=== PATIENT | male | born 1985 | race Caucasian/White ===

== ENCOUNTER 2021-02-24 09:46 | Emergency (ER) | payer MEDICAID ==
[2021-02-24] MEDS ORDERED: Ketamine 50 MG/ML (10ML VIAL) ONE (10:54)
[2021-02-24 11:05] LABS: #Eosinphils 0.1 thou/uL (0.0-0.7); #Lymphocytes 0.4 thou/uL (1.20-3.40); #Monocytes 0.4 thou/uL (0.11-0.59); #Neutrophils 2.3 thou/uL (1.40-6.50); %Basophils 0.5 % (0.0-1.0); %Eosinophils 3.4 % (0.0-10.0); %Lymphocytes 12.8 % (21.0-51.0); %Monocytes 11.9 % (0.0-10.0); %Neutrophils 71.4 % (42.0-75.0); Hemoglobin 13.2 g/dL (14.0-18.0); Mean Corpuscular HGB CONC 33.4 g/dL (32.0-36.0); Mean Corpuscular Hemoglobin 34.3 pg (27.0-31.0); Mean Platelet Volume 8.7 fL (7.4-10.4); Platelet Count 122 thou/uL (130-400); RBC Distribution Width 13.9 % (11.5-14.5); Red Blood Cell (RBC) Count 3.85 mill/uL (4.70-6.10); White Blood Cell (WBC) Count 3.3 thou/uL (4.8-10.8)
[2021-02-24 11:25] LABS: ALT (SGPT) 16 U/L (8-55); AST (SGOT) 21 U/L (5-34); Acetaminophen Less than 6.0 mcg/mL (10.0-30.0); Albumin 4.8 g/dL (3.5-5.0); Alcohol Less than 10 mg/dL (Less than 10); Alkaline Phosphatase 109 U/L (40-110); Anion Gap 14 mmol/L (10-20); BUN (Urea Nitrogen) 12 mg/dL (8.9-20.6); Bilirubin, Total 0.6 mg/dL (0.2-1.2); CK (CPK) 111 U/L (30-200); Calc. Creatinine Clearance 0 mL/min (70-130); Calcium 9.9 mg/dL (7.8-10.44); Carbon Dioxide 27 mmol/L (22-29); Chloride 103 mmol/L (98-107); Glucose 93 mg/dL (70-105); Potassium 4.1 mmol/L (3.5-5.1); Protein, Total 7.8 g/dL (6.0-8.3); Salicylate Less than 8.0 mg/dL (15.0-30.0); Sodium 140 mmol/L (136-145)
[2021-02-24 12:15] LABS: Troponin I Less than 0.010 ng/mL (< 0.028)
== END 2021-02-24 11:48 ==
LOC: EDBD 09:46 → ERS 09:46
DX: R55 Syncope and collapse (principal); F22 Delusional disorders
CPT/HCPCS: 80053; 80307; 82550; 84443; 84484; 85025; 93005

== ENCOUNTER 2021-09-14 07:42 | Emergency (ER) | payer OTHER ==
[2021-09-14 08:41] LABS: #Lymphocytes 0.4 thou/uL (1.20-3.40); #Monocytes 0.5 thou/uL (0.11-0.59); #Neutrophils 5.9 thou/uL (1.40-6.50); %Basophils 0.2 % (0.0-1.0); %Eosinophils 0.2 % (0.0-10.0); %Lymphocytes 5.6 % (21.0-51.0); %Monocytes 6.7 % (0.0-10.0); %Neutrophils 87.4 % (42.0-75.0); Hemoglobin 13.8 g/dL (14.0-18.0); Mean Corpuscular HGB CONC 35.2 g/dL (32.0-36.0); Mean Corpuscular Hemoglobin 32.9 pg (27.0-31.0); Mean Corpuscular Volume 93.5 fL (78.0-98.0); Mean Platelet Volume 8.2 fL (7.4-10.4); Platelet Count 113 thou/uL (130-400); RBC Distribution Width 11.9 % (11.5-14.5); Red Blood Cell (RBC) Count 4.19 mill/uL (4.70-6.10); White Blood Cell (WBC) Count 6.8 thou/uL (4.8-10.8)
[2021-09-14] MEDS ORDERED: Ondansetron PF 4 MG/2 ML Vial ONE ×2 (08:43→10:12)
[2021-09-14] MEDS ORDERED: Morphine 4 MG/ML VIAL ONE (08:43)
[2021-09-14 08:54] LABS: ALT (SGPT) 21 U/L (8-55); AST (SGOT) 24 U/L (5-34); Albumin 4.3 g/dL (3.5-5.0); Alkaline Phosphatase 76 U/L (40-110); Anion Gap 14 mmol/L (10-20); BUN (Urea Nitrogen) 15 mg/dL (8.9-20.6); Bilirubin, Total 1.1 mg/dL (0.2-1.2); Calc. Creatinine Clearance 0 mL/min (70-130); Calcium 9.6 mg/dL (7.8-10.44); Carbon Dioxide 27 mmol/L (22-29); Chloride 101 mmol/L (98-107); Globulin 2.9 g/dL (2.4-3.5); Glucose 90 mg/dL (70-105); Lipase 29 U/L (8-78); Potassium 4.7 mmol/L (3.5-5.1); Protein, Total 7.2 g/dL (6.0-8.3); Sodium 137 mmol/L (136-145)
[2021-09-14 10:15] LABS: SARS-CoV-2 NAA Rapid Test DETECTED (NotDetected)
== END 2021-09-14 10:30 ==
LOC: EEVIPCON 07:42 → ERS 07:42
DX: U07.1 COVID-19 (principal); M25.551 Pain in right hip; Z87.891 Personal history of nicotine dependence
CPT/HCPCS: 36415; 71045; 80053; 83605; 83690; 84484; 85025; 87040; 93005; 94760; 96374; 96375; 96376; J2270; J2405; U0002

== ENCOUNTER 2021-12-19 13:52 | Outpatient (CLI) | payer OTHER ==
[~2021-12-19 13:52] MED LIST: Iopamidol-370 76% 500 ML 1 ML ONE
== END 2021-12-19 13:53 | disposition home or self-care (01) ==
LOC: BICCT 13:52
PROVIDERS: ATTEND Internal Medicine Hematology & Oncology
DX: Z08 Encounter for follow-up examination after completed treatment for malignant neoplasm (principal); Z85.72 Personal history of non-Hodgkin lymphomas; Z87.898 Personal history of other specified conditions; R91.1 Solitary pulmonary nodule; R59.1 Generalized enlarged lymph nodes
CPT/HCPCS: 70491; 71260; 74177; Q9967

== ENCOUNTER 2023-09-09 14:50 | Emergency (ER) | payer OTHER ==
[2023-09-09 18:44] LABS: SARS-CoV-2 NAA Rapid Test Not Detected (NotDetected)
== END 2023-09-09 18:05 | disposition home or self-care (01) ==
LOC: ERS 14:50
DX: J01.90 Acute sinusitis, unspecified (principal); B96.89 Other specified bacterial agents as the cause of diseases classified elsewhere; Z87.891 Personal history of nicotine dependence
CPT/HCPCS: 71046

== ENCOUNTER 2023-10-09 07:29 | Inpatient (IN) | payer OTHER ==
[2023-10-09 08:41] LABS: Hemoglobin 13.2 g/dL (14.0-18.0); Manual Diff?? YES; Mean Corpuscular HGB CONC 33.8 g/dL (32.0-36.0); Mean Corpuscular Hemoglobin 30.5 pg (27.0-31.0); Mean Corpuscular Volume 90.1 fl (78.0-98.0); Mean Platelet Volume 9.7 fL (7.4-10.4); RBC Distribution Width 13.9 % (11.5-14.5); Red Blood Cell (RBC) Count 4.33 mill/uL (4.70-6.10); White Blood Cell (WBC) Count 12.6 10x3/uL (4.8-10.8)
[2023-10-09 08:51] LABS: Delete Auto Diff?? YES; Platelet Count 89 10x3/uL (130-400)
[2023-10-09 09:05] LABS: Troponin I Less than 0.010 ng/mL (< 0.028)
[2023-10-09 09:14] LABS: Band 3 % (5-11); CellaVision Operator ID LAB.KW3; Eosinophils 5 % (0-10); Lymphocytes 12 % (21-51); Monocytes 14 % (0-10); Neutrophil 65 % (42-75); Platelet Adequacy Comment Significant decrease; RBC Morphology Within Normal Limits; Total Cell Count 98
[2023-10-09 10:02] LABS: ALT (SGPT) 25 U/L (8-55); AST (SGOT) 58 U/L (5-34); Albumin 4.3 g/dL (3.5-5.0); Alkaline Phosphatase 82 U/L (40-110); Anion Gap 17 mmol/L (10-20); BUN (Urea Nitrogen) 13 mg/dL (8.9-20.6); Bilirubin, Total 0.6 mg/dL (0.2-1.2); Calc. Creatinine Clearance 0 mL/min (70-130); Calcium 9.6 mg/dL (7.6-10.4); Carbon Dioxide 26 mmol/L (22-29); Chloride 101 mmol/L (98-107); Estimated GFR 92; Globulin 2.3 g/dL (2.4-3.5); Glucose 67 mg/dL (70-105); Lipase 28 U/L (8-78); Potassium 4.5 mmol/L (3.5-5.1); Protein, Total 6.6 g/dL (6.0-8.3); Sodium 139 mmol/L (136-145)
[2023-10-09] MEDS ORDERED: Iopamidol-370 76% 500 ML MDV (1 ML CHARGE) ONE (10:20)
[2023-10-09] MEDS ORDERED: Nicotine 14 MG PATCH ONE (11:27)
[2023-10-09] MEDS ORDERED: Enoxaparin 100 MG (1 mL) SYRINGE ONE (11:27)
[2023-10-09] MEDS ORDERED: Enoxaparin 80 MG (0.8 mL) SYRINGE ONE (11:34)
[2023-10-09] MEDS ORDERED: Acetaminophen 650 MG Suppository PR PRN (12:33)
[2023-10-09] MEDS ORDERED: Sodium Chloride 0.9% 1,000 ML IV SCH (17:15)
[2023-10-09] MEDS: HYDROcodone/Acetaminophen 5/325 mg Tablet PO PRN (18:35)
[2023-10-09] MEDS: Allopurinol 300 MG TAB PO SCH (20:00)
[2023-10-09] MEDS: Acetaminophen 325 MG TAB PO PRN (20:00)
[2023-10-09] MEDS: Sodium Chloride 0.9% 1,000 ML IV SCH (20:02)
[2023-10-09] MEDS: Enoxaparin 80 MG (0.8 mL) SYRINGE SC SCH (20:06)
[2023-10-10 08:00] LABS: Hematocrit 38.8 % (42.0-52.0); Hemoglobin 13.2 g/dL (14.0-18.0); Manual Diff?? YES; Mean Corpuscular Hemoglobin 30.9 pg (27.0-31.0); Mean Corpuscular Volume 90.9 fl (78.0-98.0); Mean Platelet Volume 10.5 fL (7.4-10.4); RBC Distribution Width 13.8 % (11.5-14.5); Red Blood Cell (RBC) Count 4.27 mill/uL (4.70-6.10); White Blood Cell (WBC) Count 13.2 10x3/uL (4.8-10.8)
[2023-10-10 08:06] LABS: Platelet Count 74 10x3/uL (130-400)
[2023-10-10 08:07] LABS: Delete Auto Diff?? YES
[2023-10-10 08:20] LABS: ALT (SGPT) 136 U/L (8-55); AST (SGOT) 181 U/L (5-34); Alkaline Phosphatase 127 U/L (40-110); Anion Gap 21 mmol/L (10-20); BUN (Urea Nitrogen) 14 mg/dL (8.9-20.6); Bilirubin, Total 0.7 mg/dL (0.2-1.2); Calc. Creatinine Clearance 116 mL/min (70-130); Calcium 9.2 mg/dL (7.8-10.44); Carbon Dioxide 19 mmol/L (22-29); Chloride 102 mmol/L (98-107); Estimated GFR 106; Globulin 2.1 g/dL (2.4-3.5); Glucose 62 mg/dL (70-105); Potassium 3.9 mmol/L (3.5-5.1); Protein, Total 6.1 g/dL (6.0-8.3); Sodium 138 mmol/L (136-145); Uric Acid 6.7 mg/dL (3.5-7.2)
[2023-10-10 08:49] LABS: Band 7 % (5-11); CellaVision Operator ID LAB.KW3; Eosinophils 4 % (0-10); Lymphocytes 14 % (21-51); Monocytes 6 % (0-10); Neutrophil 67 % (42-75); Platelet Adequacy Comment Significant decrease; RBC Morphology Within Normal Limits; Reactive Lymphocytes 2 % (0-10); Total Cell Count 99
[2023-10-10] MEDS ORDERED: Iopamidol 370 76% 100 ML VIAL ONE (11:04)
[2023-10-10] MEDS: FLU VACC QS2023-24(6MOS UP)/PF 60 MCG/0.5 ML SYRINGE IM ONE (16:23)
[2023-10-11 05:27] LABS: Hematocrit 37.8 % (42.0-52.0); Hemoglobin 12.9 g/dL (14.0-18.0); Manual Diff?? YES; Mean Corpuscular HGB CONC 34.1 g/dL (32.0-36.0); Mean Corpuscular Hemoglobin 30.8 pg (27.0-31.0); Mean Corpuscular Volume 90.2 fl (78.0-98.0); Mean Platelet Volume 10.3 fL (7.4-10.4); RBC Distribution Width 14.1 % (11.5-14.5); Red Blood Cell (RBC) Count 4.19 mill/uL (4.70-6.10); White Blood Cell (WBC) Count 15.6 10x3/uL (4.8-10.8)
[2023-10-11 05:35] LABS: Delete Auto Diff?? YES; Platelet Count 71 10x3/uL (130-400)
[2023-10-11 05:56] LABS: ALT (SGPT) 378 U/L (8-55); AST (SGOT) 540 U/L (5-34); Albumin 3.8 g/dL (3.5-5.0); Alkaline Phosphatase 226 U/L (40-110); Anion Gap 21 mmol/L (10-20); BUN (Urea Nitrogen) 10 mg/dL (8.9-20.6); Calc. Creatinine Clearance 110 mL/min (70-130); Calcium 9.2 mg/dL (7.8-10.44); Carbon Dioxide 16 mmol/L (22-29); Chloride 103 mmol/L (98-107); Estimated GFR 99; Globulin 2.7 g/dL (2.4-3.5); Glucose 70 mg/dL (70-105); Protein, Total 6.5 g/dL (6.0-8.3); Sodium 136 mmol/L (136-145); Uric Acid Less than 2.0 mg/dL (3.5-7.2)
[2023-10-11 06:10] LABS: Band 6 % (5-11); CellaVision Operator ID lab.abc; Eosinophils 4 % (0-10); Lymphocytes 17 % (21-51); Metamyelocyte 6 % (0-0); Monocytes 7 % (0-10); Myelocyte 2 % (0-0); Neutrophil 57 % (42-75); Platelet Adequacy Comment Platelets Decreased; RBC Morphology Within Normal Limits; Total Cell Count 100
[2023-10-11] MEDS: traMADol HCl 50 MG TAB PO PRN (08:08)
[2023-10-11] MEDS ORDERED: Lidocaine 1% PF 5 ML VIAL ONE (08:43)
[2023-10-11] MEDS ORDERED: Sodium Bicarbonate 2.5 MEQ/5 ML SDV ONE (08:43)
[2023-10-11 08:48] LABS: HBCM Index 0.07 S/CO (0-0.79); HBSAg Index 0.27 S/CO (0-0.99); HIV (1/2) Antibody/Antigen Non-Reactive (NonReactive); HIV 1/2 INDEX 0.18 S/CO (<1.00); Hep A IgM AB Non-Reactive S/CO (NonReactive); Hep A IgM S/CO 0.13 S/CO (0-0.79); Hep B Surf Ag Non-Reactive S/CO (NonReactive); Hep C IgG Ab Non-Reactive S/CO (NonReactive); Hep C Index 0.05 S/CO (0-0.79); Hepatitis B Core IgM Abs Non-Reactive S/CO (NonReactive)
[2023-10-11] MEDS: Lidocaine 4% Patch TD SCH (10:35)
[2023-10-11] MEDS: Methocarbamol 500 MG TAB PO PRN (10:35)
[2023-10-11 11:57] LABS: Bacteria/HPF None Seen HPF (None Seen); Bilirubin Negative (Negative); Blood, Urine 1+ (Negative); Clarity Clear (Clear); Glucose, Urine (Dipstick) Normal (Negative); Ketone, Urine 40 mg/dL (Negative); Leukocyte Negative Leu/uL (Negative); Nitrite Negative (Negative); Protein, Urine (Dipstick) Negative (Neg-Trace); RBC/HPF 0-3 HPF (0-3); Specific Gravity, Urine 1.017 (1.002-1.036); Squamous Epithelial None Seen HPF (0-3); Urobilinogen Normal mg/dL (Less than 2); WBC/HPF 0-3 HPF (0-3); pH, Urine 5.5 (5.0-9.0)
[2023-10-11 12:24] LABS: Amphetamine Not Detected (NotDetected); Barbiturates Screen Not Detected (NotDetected); Benzodiazepine Screen Not Detected (NotDetected); Cocaine Metabolite Screen Not Detected (NotDetected); Methadone Not Detected (NotDetected); Methamphetamine Not Detected (NotDetected); Opiate Screen Not Detected (NotDetected); Oxycodone Screen Not Detected (NotDetected); Phencyclidine (PCP) Not Detected (NotDetected); THC/Cannabinoid Screen Detected (NotDetected); Tricyclic Screen Not Detected (NotDetected)
[2023-10-11] MEDS: Ondansetron ODT 4 MG TAB PO PRN (12:35)
[2023-10-11 18:33] LABS: Platelet Count 49 10x3/uL (130-400)
[2023-10-11 18:42] LABS: Fibrinogen 385 mg/dL (253-463)
[2023-10-11 18:43] LABS: INR-International Normal Ratio 1.2; Prothrombin Time 14.7 sec (12.0-14.7)
[2023-10-11 18:44] LABS: D-Dimer Test 2.01 mcg/mL (0.27-0.43)
[2023-10-11] MEDS: Transdermal Patch Removal TOP SCH (20:34)
[2023-10-12] MEDS: Ondansetron PF 4 MG/2 ML Vial IVP PRN (02:07)
[2023-10-12] MEDS: Morphine 2 MG/ML VIAL SLOW IVP SCH (04:37)
[2023-10-12 05:38] LABS: Hematocrit 40.1 % (42.0-52.0); Hemoglobin 13.5 g/dL (14.0-18.0); Manual Diff?? YES; Mean Corpuscular HGB CONC 33.7 g/dL (32.0-36.0); Mean Corpuscular Hemoglobin 30.8 pg (27.0-31.0); Mean Corpuscular Volume 91.3 fl (78.0-98.0); Mean Platelet Volume 10.7 fL (7.4-10.4); RBC Distribution Width 14.2 % (11.5-14.5); Red Blood Cell (RBC) Count 4.39 mill/uL (4.70-6.10); White Blood Cell (WBC) Count 17.6 10x3/uL (4.8-10.8)
[2023-10-12 06:00] LABS: Delete Auto Diff?? YES; Platelet Count 47 10x3/uL (130-400)
[2023-10-12 06:02] LABS: ALT (SGPT) 301 U/L (8-55); AST (SGOT) 210 U/L (5-34); Albumin 4.1 g/dL (3.5-5.0); Alkaline Phosphatase 295 U/L (40-110); Anion Gap 25 mmol/L (10-20); BUN (Urea Nitrogen) 12 mg/dL (8.9-20.6); Calc. Creatinine Clearance 121 mL/min (70-130); Calcium 9.2 mg/dL (7.8-10.44); Carbon Dioxide 16 mmol/L (22-29); Chloride 98 mmol/L (98-107); Estimated GFR 111; Globulin 2.6 g/dL (2.4-3.5); Potassium 4.8 mmol/L (3.5-5.1); Protein, Total 6.7 g/dL (6.0-8.3); Sodium 134 mmol/L (136-145); Uric Acid 5.3 mg/dL (3.5-7.2)
[2023-10-12 06:14] LABS: Critical Call Chemistry NUR..SAP1@0614; Glucose 49 mg/dL (70-105)
[2023-10-12] MEDS ORDERED: Glucagon 1 MG/ML KIT IM PRN (06:17)
[2023-10-12] MEDS: Dextrose 5% in Water 1,000 ML IV PRN (06:22)
[2023-10-12 06:39] LABS: Band 11 % (5-11); CellaVision Operator ID LAB.JMM; Eosinophils 3 % (0-10); Lymphocytes 9 % (21-51); Macrocytosis SLIGHT = 6-15 cells HPF (0-5); Metamyelocyte 6 % (0-0); Monocytes 4 % (0-10); Myelocyte 6 % (0-0); Neutrophil 60 % (42-75); Platelet Adequacy Comment Platelets Decreased; Polychromasia SLIGHT = 2-3 cells HPF (0-2); Smudge Cells 39.8 %; Total Cell Count 98
[2023-10-12] MEDS: Dextrose 5 %-0.45 % NaCl 1,000 ML IV SCH (07:53)
[2023-10-12] MEDS ORDERED: Allopurinol 300 MG TAB PO SCH (09:00)
[2023-10-12] MEDS: Azithromycin 250 MG TAB PO SCH (11:32)
[2023-10-12] MEDS: Enoxaparin 40 MG (0.4 mL) SYRINGE SC SCH (11:33)
[2023-10-12] MEDS: Zolpidem Tartrate 5 MG TAB PO PRN (20:26)
[2023-10-13 04:35] LABS: Hematocrit 40.6 % (42.0-52.0); Hemoglobin 13.9 g/dL (14.0-18.0); Manual Diff?? YES; Mean Corpuscular HGB CONC 34.2 g/dL (32.0-36.0); Mean Corpuscular Hemoglobin 30.3 pg (27.0-31.0); Mean Corpuscular Volume 88.6 fl (78.0-98.0); Mean Platelet Volume 10.1 fL (7.4-10.4); RBC Distribution Width 14.3 % (11.5-14.5); Red Blood Cell (RBC) Count 4.58 mill/uL (4.70-6.10); White Blood Cell (WBC) Count 16.3 10x3/uL (4.8-10.8)
[2023-10-13 04:51] LABS: Delete Auto Diff?? YES; Platelet Count 37 10x3/uL (130-400)
[2023-10-13 05:09] LABS: ALT (SGPT) 302 U/L (8-55); AST (SGOT) 213 U/L (5-34); Albumin 4.2 g/dL (3.5-5.0); Alkaline Phosphatase 409 U/L (40-110); Anion Gap 21 mmol/L (10-20); BUN (Urea Nitrogen) 11 mg/dL (8.9-20.6); Bilirubin, Total 1.6 mg/dL (0.2-1.2); Calc. Creatinine Clearance 133 mL/min (70-130); Calcium 9.6 mg/dL (7.8-10.44); Carbon Dioxide 17 mmol/L (22-29); Chloride 96 mmol/L (98-107); Estimated GFR 115; Globulin 2.6 g/dL (2.4-3.5); Glucose 66 mg/dL (70-105); Potassium 4.4 mmol/L (3.5-5.1); Protein, Total 6.8 g/dL (6.0-8.3); Sodium 130 mmol/L (136-145); Uric Acid 9.3 mg/dL (3.5-7.2)
[2023-10-13 05:31] LABS: Band 12 % (5-11); CellaVision Operator ID lab.abc; Eosinophils 3 % (0-10); Lymphocytes 9 % (21-51); Metamyelocyte 3 % (0-0); Monocytes 7 % (0-10); Myelocyte 6 % (0-0); Neutrophil 59 % (42-75); Nucleated RBC (Manual Ct) 1 % (0); Platelet Adequacy Comment Platelets Decreased; Polychromasia SLIGHT = 2-3 cells HPF (0-2); RBC Morphology Within Normal Limits; Reactive Lymphocytes 1 % (0-10); Smudge Cells 32.4 %; Total Cell Count 102
[2023-10-13] MEDS: Azithromycin 250 MG TAB PO SCH (08:37)
[2023-10-14 05:29] LABS: Hematocrit 35.5 % (42.0-52.0); Hemoglobin 12.2 g/dL (14.0-18.0); Manual Diff?? YES; Mean Corpuscular HGB CONC 34.4 g/dL (32.0-36.0); Mean Corpuscular Hemoglobin 30.9 pg (27.0-31.0); Mean Corpuscular Volume 89.9 fl (78.0-98.0); Mean Platelet Volume 10.1 fL (7.4-10.4); RBC Distribution Width 14.6 % (11.5-14.5); Red Blood Cell (RBC) Count 3.95 mill/uL (4.70-6.10); White Blood Cell (WBC) Count 13.2 10x3/uL (4.8-10.8)
[2023-10-14 05:46] LABS: Delete Auto Diff?? YES; Platelet Count 25 10x3/uL (130-400)
[2023-10-14 06:05] LABS: ALT (SGPT) 353 U/L (8-55); AST (SGOT) 266 U/L (5-34); Albumin 3.7 g/dL (3.5-5.0); Alkaline Phosphatase 510 U/L (40-110); Anion Gap 26 mmol/L (10-20); BUN (Urea Nitrogen) 14 mg/dL (8.9-20.6); Bilirubin, Total 0.9 mg/dL (0.2-1.2); Calc. Creatinine Clearance 145 mL/min (70-130); Calcium 9.7 mg/dL (7.8-10.44); Carbon Dioxide 15 mmol/L (22-29); Chloride 99 mmol/L (98-107); Estimated GFR 118; Globulin 2.8 g/dL (2.4-3.5); Glucose 71 mg/dL (70-105); Potassium 4.4 mmol/L (3.5-5.1); Protein, Total 6.5 g/dL (6.0-8.3); Sodium 136 mmol/L (136-145); Uric Acid 10.1 mg/dL (3.5-7.2)
[2023-10-14 06:23] LABS: Anisocytosis SLIGHT = 6-15 cells HPF (0-5); Band 8 % (5-11); CellaVision Operator ID LAB.JMM; Eosinophils 7 % (0-10); Large Platelets 3.3 % (0-5); Lymphocytes 10 % (21-51); Macrocytosis SLIGHT = 6-15 cells HPF (0-5); Metamyelocyte 4 % (0-0); Monocytes 1 % (0-10); Myelocyte 9 % (0-0); Neutrophil 62 % (42-75); Nucleated RBC (Manual Ct) 1 % (0); Platelet Adequacy Comment Significant decrease; Polychromasia SLIGHT = 2-3 cells HPF (0-2); Smudge Cells 57.6 %; Total Cell Count 92
[2023-10-14] MEDS: HYDROcodone/Acetaminophen 5/325 mg Tablet PO PRN (18:03)
[2023-10-15 04:51] LABS: Hematocrit 33.1 % (42.0-52.0); Hemoglobin 11.2 g/dL (14.0-18.0); Manual Diff?? YES; Mean Corpuscular HGB CONC 33.8 g/dL (32.0-36.0); Mean Corpuscular Hemoglobin 30.2 pg (27.0-31.0); Mean Corpuscular Volume 89.2 fl (78.0-98.0); Mean Platelet Volume 11.2 fL (7.4-10.4); RBC Distribution Width 14.5 % (11.5-14.5); Red Blood Cell (RBC) Count 3.71 mill/uL (4.70-6.10); White Blood Cell (WBC) Count 9.4 10x3/uL (4.8-10.8)
[2023-10-15 04:59] LABS: Platelet Count 17 10x3/uL (130-400)
[2023-10-15 05:00] LABS: Delete Auto Diff?? YES
[2023-10-15 05:09] LABS: ALT (SGPT) 313 U/L (8-55); AST (SGOT) 222 U/L (5-34); Albumin 3.7 g/dL (3.5-5.0); Alkaline Phosphatase 611 U/L (40-110); Anion Gap 27 mmol/L (10-20); BUN (Urea Nitrogen) 16 mg/dL (8.9-20.6); Calc. Creatinine Clearance 151 mL/min (70-130); Carbon Dioxide 14 mmol/L (22-29); Chloride 97 mmol/L (98-107); Estimated GFR 119; Globulin 2.4 g/dL (2.4-3.5); Glucose 61 mg/dL (70-105); Potassium 4.4 mmol/L (3.5-5.1); Protein, Total 6.1 g/dL (6.0-8.3); Sodium 134 mmol/L (136-145); Uric Acid 11.8 mg/dL (3.5-7.2)
[2023-10-15 05:47] LABS: Band 22 % (5-11); CellaVision Operator ID lab.abc; Eosinophils 4 % (0-10); Lymphocytes 11 % (21-51); Metamyelocyte 3 % (0-0); Monocytes 6 % (0-10); Myelocyte 5 % (0-0); Neutrophil 49 % (42-75); Platelet Adequacy Comment Platelets Decreased; Reactive Lymphocytes 1 % (0-10); Smudge Cells 54.9 %; Target Cells SLIGHT = 2-5 cells HPF (0-1); Total Cell Count 102
[2023-10-15] MEDS ORDERED: Lidocaine 1% PF 5 ML VIAL ONE (14:22)
[2023-10-15] MEDS ORDERED: fentaNYL 50 mcg/mL 1 mL Vial ONE (14:22)
[2023-10-15] MEDS ORDERED: Midazolam HCl 2 mg/2 ml Vial ONE (14:22)
[2023-10-15] MEDS: QUEtiapine 25 MG TAB PO SCH (21:03)
[2023-10-16 05:05] LABS: Hematocrit 39.2 % (42.0-52.0); Hemoglobin 13.3 g/dL (14.0-18.0); Manual Diff?? YES; Mean Corpuscular HGB CONC 33.9 g/dL (32.0-36.0); Mean Corpuscular Hemoglobin 30.7 pg (27.0-31.0); Mean Corpuscular Volume 90.5 fl (78.0-98.0); Mean Platelet Volume 10.7 fL (7.4-10.4); RBC Distribution Width 14.4 % (11.5-14.5); Red Blood Cell (RBC) Count 4.33 mill/uL (4.70-6.10); White Blood Cell (WBC) Count 10.1 10x3/uL (4.8-10.8)
[2023-10-16 05:29] LABS: ALT (SGPT) 320 U/L (8-55); AST (SGOT) 205 U/L (5-34); Albumin 4.1 g/dL (3.5-5.0); Alkaline Phosphatase 854 U/L (40-110); Anion Gap 32 mmol/L (10-20); BUN (Urea Nitrogen) 24 mg/dL (8.9-20.6); Bilirubin, Total 1.3 mg/dL (0.2-1.2); Calc. Creatinine Clearance 131 mL/min (70-130); Calcium 10.3 mg/dL (7.8-10.44); Chloride 97 mmol/L (98-107); Estimated GFR 114; Globulin 3.2 g/dL (2.4-3.5); Potassium 5.2 mmol/L (3.5-5.1); Protein, Total 7.3 g/dL (6.0-8.3); Sodium 132 mmol/L (136-145); Uric Acid 14.9 mg/dL (3.5-7.2)
[2023-10-16 05:36] LABS: Carbon Dioxide 8 mmol/L (22-29); Critical Call Chemistry NUR.SAP1@0535; Glucose 52 mg/dL (70-105)
[2023-10-16 05:51] LABS: Delete Auto Diff?? YES; Platelet Count 19 10x3/uL (130-400)
[2023-10-16] MEDS: Sodium Bicarb 50 MEQ/50 ML Abboject 8.4% SYRINGE IVP SCH ×2 (06:21→10:50)
[2023-10-16 07:12] LABS: Anisocytosis MODERATE=16-30 cells HPF (0-5); Band 20 % (5-11); CellaVision Operator ID LAB.JMM; Eosinophils 4 % (0-10); Large Platelets 1.1 % (0-5); Lymphocytes 8 % (21-51); Macrocytosis SLIGHT = 6-15 cells HPF (0-5); Monocytes 3 % (0-10); Myelocyte 6 % (0-0); Neutrophil 58 % (42-75); Nucleated RBC (Manual Ct) 1 % (0); Platelet Adequacy Comment Significant decrease; Polychromasia MODERATE = 3-4 cells HPF (0-2); Smudge Cells 64.8 %; Tear Drops SLIGHT = 2-5 cells HPF (0-1); Total Cell Count 91
[2023-10-16 07:13] LABS: Lactic Acid Greater than 13.4 mmol/L (0.5-2.2)
[2023-10-16] MEDS: Lactated Ringer's 500 ML IV SCH (08:37)
[2023-10-16] MEDS: Cefepime 1 GM in Sodium Chloride 0.9% 100 ML IVPB SCH (08:45)
[2023-10-16] MEDS ORDERED: Vancomycin 1 GM in Premix 1 BAG IVPB SCH (09:00)
[2023-10-16] MEDS: Lactated Ringer's 1,000 ML IV SCH ×2 (10:42→11:32)
[2023-10-16] MEDS: Vancomycin (BATCH) 1.25 GM in Premix 1 BAG IVPB SCH (11:00)
[2023-10-16 12:21] LABS: Anion Gap 32 mmol/L (10-20); BUN (Urea Nitrogen) 24 mg/dL (8.9-20.6); Calc. Creatinine Clearance 138 mL/min (70-130); Calcium 9.6 mg/dL (7.8-10.44); Carbon Dioxide 10 mmol/L (22-29); Chloride 95 mmol/L (98-107); Estimated GFR 116; Glucose 81 mg/dL (70-105); Potassium 5.1 mmol/L (3.5-5.1); Sodium 132 mmol/L (136-145)
[2023-10-16 12:49] LABS: Critical Call Chem-Lactate NUR.KCK @1249
[2023-10-16] MEDS: Cefepime 2 GM in Sodium Chloride 0.9% 100 ML IVPB SCH (20:46)
[2023-10-17 05:36] LABS: Hematocrit 33.4 % (42.0-52.0); Hemoglobin 11.5 g/dL (14.0-18.0); Manual Diff?? YES; Mean Corpuscular HGB CONC 34.4 g/dL (32.0-36.0); Mean Corpuscular Hemoglobin 31.6 pg (27.0-31.0); Mean Corpuscular Volume 91.8 fl (78.0-98.0); Mean Platelet Volume 11.7 fL (7.4-10.4); RBC Distribution Width 14.5 % (11.5-14.5); Red Blood Cell (RBC) Count 3.64 mill/uL (4.70-6.10); White Blood Cell (WBC) Count 7.3 10x3/uL (4.8-10.8)
[2023-10-17 05:45] LABS: Delete Auto Diff?? YES; Platelet Count 15 10x3/uL (130-400)
[2023-10-17 05:46] LABS: ALT (SGPT) 272 U/L (8-55); AST (SGOT) 226 U/L (5-34); Albumin 3.7 g/dL (3.5-5.0); Alkaline Phosphatase 886 U/L (40-110); BUN (Urea Nitrogen) 18 mg/dL (8.9-20.6); Bilirubin, Total 2.3 mg/dL (0.2-1.2); Calc. Creatinine Clearance 145 mL/min (70-130); Calcium 9.3 mg/dL (7.8-10.44); Chloride 101 mmol/L (98-107); Estimated GFR 118; Globulin 3.1 g/dL (2.4-3.5); Glucose 58 mg/dL (70-105); Potassium 4.9 mmol/L (3.5-5.1); Protein, Total 6.8 g/dL (6.0-8.3); Sodium 128 mmol/L (136-145); Uric Acid 12.6 mg/dL (3.5-7.2)
[2023-10-17 05:51] LABS: Carbon Dioxide Less than 8 mmol/L (22-29); Critical Call Chemistry NUR.KS17@0550
[2023-10-17] MEDS ORDERED: Sodium Bicarbonate 150 MEQ in Dextrose 5% in Water 1,000 ML IV SCH (06:15)
[2023-10-17 06:18] LABS: Base Excess -16.1 mEq/L (-2.0 to +3.0); Chloride (VBG) 100 mmol/L (98-106); Hematocrit-VBG 35 % (42.0-52.0); Potassium (VBG) 4.83 mmol/L (3.70-5.30); Sodium 131 mmol/L (133-146); pH (venous) 7.218 (7.32-7.43)
[2023-10-17 06:30] LABS: Band 19 % (5-11); CellaVision Operator ID lab.abc; Eosinophils 1 % (0-10); Large Platelets 1.2 % (0-5); Lymphocytes 12 % (21-51); Metamyelocyte 1 % (0-0); Monocytes 12 % (0-10); Neutrophil 52 % (42-75); Platelet Adequacy Comment Platelets Decreased; RBC Morphology Within Normal Limits; Reactive Lymphocytes 2 % (0-10); Smudge Cells 58.1 %; Total Cell Count 86
[2023-10-17] MEDS: Dextrose 50% Abboject 50 ML SYRINGE SLOW IVP PRN (06:31)
[2023-10-17] MEDS: Sodium Bicarb 50 mEq/50 ML VIAL IVP SCH (06:31)
[2023-10-17] MEDS: Sodium Bicarbonate 150 MEQ in Dextrose 5% in Water 1,000 ML IV SCH (06:56)
[2023-10-17 06:58] LABS: Critical Call Chem-Lactate NUR.DW5@0658; Lactic Acid 12.1 mmol/L (0.5-2.2)
[2023-10-17 10:00] LABS: Base Excess -14.5 mEq/L (-2.0 to +3.0); Calcium, Ionized (venous) 1.15 mmol/L (1.16-1.32); Chloride (VBG) 97 mmol/L (98-106); Hematocrit-VBG 33 % (42.0-52.0); Hemoglobin (Hb) 11.3 g/dL (13.2-17.3); Potassium (VBG) 4.56 mmol/L (3.70-5.30); Sodium 131 mmol/L (133-146); pH (venous) 7.267 (7.32-7.43)
[2023-10-17 10:23] LABS: Vancomycin, Trough 8.1 ug/mL
[2023-10-17 10:25] LABS: ALT (SGPT) 277 U/L (8-55); AST (SGOT) 257 U/L (5-34); Albumin 3.5 g/dL (3.5-5.0); Alkaline Phosphatase 927 U/L (40-110); Anion Gap 30 mmol/L (10-20); BUN (Urea Nitrogen) 16 mg/dL (8.9-20.6); Bilirubin, Total 2.3 mg/dL (0.2-1.2); Calc. Creatinine Clearance 138 mL/min (70-130); Calcium 9.1 mg/dL (7.8-10.44); Chloride 97 mmol/L (98-107); Estimated GFR 116; Globulin 2.8 g/dL (2.4-3.5); Glucose 69 mg/dL (70-105); Potassium 4.7 mmol/L (3.5-5.1); Protein, Total 6.3 g/dL (6.0-8.3); Sodium 131 mmol/L (136-145)
[2023-10-17] MEDS ORDERED: Vancomycin (BATCH) 1.25 GM in Premix 1 BAG IVPB SCH (10:30)
[2023-10-17 10:36] LABS: Carbon Dioxide 9 mmol/L (22-29); Lactic Acid 13.6 mmol/L (0.5-2.2)
[2023-10-17] MEDS ORDERED: Vancomycin (BATCH) 1.5 GM in Premix 1 BAG IVPB SCH (12:00)
[2023-10-17] MEDS: Vancomycin (BATCH) 1.5 GM in Premix 1 BAG IVPB SCH (12:00)
[2023-10-17 15:12] LABS: Actual Bicarbonate (HCO3v) 10.8 mEq/L (22-28)
[2023-10-17 16:15] LABS: Heparin-Induced Ab (HITA) 0.06 OD (0.000-0.400)
[2023-10-18 03:49] LABS: Hematocrit 31.1 % (42.0-52.0); Hemoglobin 10.7 g/dL (14.0-18.0); Manual Diff?? YES; Mean Corpuscular HGB CONC 34.4 g/dL (32.0-36.0); Mean Corpuscular Hemoglobin 31.4 pg (27.0-31.0); Mean Corpuscular Volume 91.2 fl (78.0-98.0); Mean Platelet Volume 11.2 fL (7.4-10.4); RBC Distribution Width 14.3 % (11.5-14.5); Red Blood Cell (RBC) Count 3.41 mill/uL (4.70-6.10); White Blood Cell (WBC) Count 6.7 10x3/uL (4.8-10.8)
[2023-10-18 03:53] LABS: Platelet Count 20 10x3/uL (130-400)
[2023-10-18 03:54] LABS: Delete Auto Diff?? YES
[2023-10-18 04:21] LABS: ALT (SGPT) 319 U/L (8-55); AST (SGOT) 330 U/L (5-34); Albumin 3.5 g/dL (3.5-5.0); Alkaline Phosphatase 1083 U/L (40-110); BUN (Urea Nitrogen) 15 mg/dL (8.9-20.6); Bilirubin, Total 3.2 mg/dL (0.2-1.2); CK (CPK) 49 U/L (30-200); Calc. Creatinine Clearance 148 mL/min (70-130); Calcium 8.9 mg/dL (7.8-10.44); Chloride 94 mmol/L (98-107); Estimated GFR 119; Globulin 2.5 g/dL (2.4-3.5); Glucose 62 mg/dL (70-105); Potassium 4.5 mmol/L (3.5-5.1); Sodium 129 mmol/L (136-145); Uric Acid 12.7 mg/dL (3.5-7.2)
[2023-10-18 04:25] LABS: Carbon Dioxide Less than 8 mmol/L (22-29)
[2023-10-18 04:37] LABS: Band 19 % (5-11); CellaVision Operator ID lab.sh2; Large Platelets 1.1 % (0-5); Lymphocytes 19 % (21-51); Monocytes 5 % (0-10); Neutrophil 57 % (42-75); Nucleated RBC (Manual Ct) 2 % (0); Platelet Adequacy Comment Significant decrease; Polychromasia SLIGHT = 2-3 cells HPF (0-2); Smudge Cells 53.9 %; Stomatocytes SLIGHT = 2-5 cells HPF (0-1); Total Cell Count 89
[2023-10-18] MEDS ORDERED: Sodium Bicarbonate 150 MEQ in Dextrose 5% in Water 1,000 ML IV SCH (04:45)
[2023-10-18] MEDS: fentaNYL 50 mcg/mL 1 mL Vial SLOW IVP SCH (04:49)
[2023-10-18 05:07] LABS: Base Excess (BEa) -14.7 mEq/L (-2.0 to +3.0); Calcium, Ionized (arterial) 1.18 mmol/L (1.12-1.30); Carboxyhemoglobin (COHb) 0.3 gm% (0.0-3.0); Hematocrit-ABG 32 % (42.0-52.0); O2 Tension (PaO2), arterial 98.6 mmHg (80.0-100.0); Potassium - ABG Lab 4.34 mmol/L (3.70-5.30); pH, Arterial 7.264 (7.35-7.45)
[2023-10-18 05:09] LABS: Actual Bicarbonate (HCO3a) 10.6 mEq/L (22-28); Puncture Site RRA
[2023-10-18] MEDS ORDERED: Acetaminophen 325 MG TAB PO SCH (06:00)
[2023-10-18] MEDS ORDERED: Sulfameth/Trimethoprim DS 800-160mg TAB PO SCH (06:00)
[2023-10-18] MEDS ORDERED: VINCRISTINE SULFATE IVPB SCH (06:00)
[2023-10-18] MEDS ORDERED: SODIUM CHLORIDE 0.9% IVPB SCH ×2 (06:00→11:00)
[2023-10-18] MEDS ORDERED: ADMIXTURE FEE IVPB SCH (06:00)
[2023-10-18] MEDS ORDERED: Dexamethasone 20 MG in Sodium Chloride 0.9% 50 ML IVPB SCH (06:00)
[2023-10-18] MEDS ORDERED: DIPHENHYDRAMINE IVPB SCH (06:00)
[2023-10-18] MEDS ORDERED: SODIUM CHLORIDE IVPB SCH (06:00)
[2023-10-18] MEDS: Sodium Bicarbonate 150 MEQ in Dextrose 5% in Water 1,000 ML IV SCH (06:09)
[2023-10-18] MEDS: Sodium Bicarb 50 mEq/50 ML VIAL IVP SCH (07:39)
[2023-10-18] MEDS: Allopurinol 300 MG TAB PO SCH (10:04)
[2023-10-18] MEDS ORDERED: RASBURICASE IVPB SCH (11:00)
[2023-10-18] MEDS: DRY MOUTH SPRAY FS SCH (12:10)
[2023-10-18] MEDS: Dexamethasone Sod Phosphate 20 MG in Sodium Chloride 0.9% 50 ML IVPB SCH (12:25)
[2023-10-18] MEDS: Famotidine/PF 20 MG in Sodium Chloride 0.9% 50 ML IVPB SCH (12:25)
[2023-10-18] MEDS: PALONOSETRON HCL 0.05 MG/ML 5 ML VIAL IVP SCH ×2 (12:51→12:53)
[2023-10-18] MEDS: DOXORUBICIN IVPB SCH ×2 (13:18→16:24)
[2023-10-18] MEDS: ETOPOSIDE IVPB SCH (13:18)
[2023-10-18] MEDS: VINCRISTINE SULFATE IVPB SCH ×2 (13:18→16:24)
[2023-10-18] MEDS: SODIUM CHLORIDE 0.9% IVPB SCH ×3 (13:18→16:24)
[2023-10-18] MEDS ORDERED: Prochlorperazine 10 MG/2 ML VIAL IM PRN (14:30)
[2023-10-18 15:36] LABS: ALT (SGPT) 294 U/L (8-55); AST (SGOT) 328 U/L (5-34); Albumin 3.3 g/dL (3.5-5.0); Alkaline Phosphatase 1022 U/L (40-110); Anion Gap 28 mmol/L (10-20); BUN (Urea Nitrogen) 15 mg/dL (8.9-20.6); Calc. Creatinine Clearance 155 mL/min (70-130); Calcium 8.8 mg/dL (7.8-10.44); Carbon Dioxide 10 mmol/L (22-29); Chloride 95 mmol/L (98-107); Estimated GFR 120; Globulin 2.6 g/dL (2.4-3.5); Glucose 94 mg/dL (70-105); Potassium 4.2 mmol/L (3.5-5.1); Protein, Total 5.9 g/dL (6.0-8.3); Sodium 129 mmol/L (136-145); Uric Acid 5.7 mg/dL (3.5-7.2)
[2023-10-18 15:43] LABS: Lactic Acid 14.1 mmol/L (0.5-2.2)
[2023-10-18] MEDS: Morphine 4 MG/ML VIAL SLOW IVP PRN (18:45)
[2023-10-19 05:28] LABS: Hematocrit 29.1 % (42.0-52.0); Hemoglobin 10.5 g/dL (14.0-18.0); Manual Diff?? YES; Mean Corpuscular HGB CONC 36.1 g/dL (32.0-36.0); Mean Corpuscular Hemoglobin 31.2 pg (27.0-31.0); Mean Corpuscular Volume 86.4 fl (78.0-98.0); RBC Distribution Width 13.4 % (11.5-14.5); Red Blood Cell (RBC) Count 3.37 mill/uL (4.70-6.10); White Blood Cell (WBC) Count 2.7 10x3/uL (4.8-10.8)
[2023-10-19 05:29] LABS: Platelet Count 12 10x3/uL (130-400)
[2023-10-19 05:30] LABS: Delete Auto Diff?? YES
[2023-10-19 05:56] LABS: Anisocytosis SLIGHT = 6-15 cells HPF (0-5); Band 25 % (5-11); CellaVision Operator ID LAB.CLH1; Eosinophils 5 % (0-10); Hypochromia SLIGHT = 6-15 cells HPF (0-5); Large Platelets 0.9 % (0-5); Lymphocytes 7 % (21-51); Metamyelocyte 8 % (0-0); Monocytes 1 % (0-10); Myelocyte 3 % (0-0); Neutrophil 53 % (42-75); Platelet Adequacy Comment Platelets Decreased; Polychromasia SLIGHT = 2-3 cells HPF (0-2); Target Cells MODERATE= 6-15 cells HPF (0-1); Total Cell Count 106
[2023-10-19 06:00] LABS: ALT (SGPT) 240 U/L (8-55); AST (SGOT) 242 U/L (5-34); Albumin 3.2 g/dL (3.5-5.0); Alkaline Phosphatase 937 U/L (40-110); Anion Gap 19 mmol/L (10-20); BUN (Urea Nitrogen) 32 mg/dL (8.9-20.6); Bilirubin, Total 1.9 mg/dL (0.2-1.2); Calc. Creatinine Clearance 149 mL/min (70-130); Carbon Dioxide 23 mmol/L (22-29); Chloride 95 mmol/L (98-107); Estimated GFR 118; Globulin 2.9 g/dL (2.4-3.5); Glucose 344 mg/dL (70-105); Potassium 4.6 mmol/L (3.5-5.1); Protein, Total 6.1 g/dL (6.0-8.3); Sodium 132 mmol/L (136-145); Uric Acid 8.8 mg/dL (3.5-7.2)
[2023-10-19] MEDS: predniSONE 50 MG TAB PO SCH (09:31)
[2023-10-19] MEDS: Allopurinol 300 MG TAB PO SCH (09:31)
[2023-10-19] MEDS: Nicotine 21 MG PATCH TD SCH (09:32)
[2023-10-20 04:31] LABS: Hematocrit 21.3 % (42.0-52.0); Manual Diff?? YES; Mean Corpuscular HGB CONC 34.7 g/dL (32.0-36.0); Mean Corpuscular Hemoglobin 30.1 pg (27.0-31.0); Mean Corpuscular Volume 86.6 fl (78.0-98.0); RBC Distribution Width 13.1 % (11.5-14.5); Red Blood Cell (RBC) Count 2.46 mill/uL (4.70-6.10); White Blood Cell (WBC) Count 1.1 10x3/uL (4.8-10.8)
[2023-10-20 04:35] LABS: Platelet Count 6 10x3/uL (130-400)
[2023-10-20 04:36] LABS: Delete Auto Diff?? YES; Hemoglobin 7.4 g/dL (14.0-18.0)
[2023-10-20 04:38] LABS: Critical Call w/ Read Back 95692376 @0436
[2023-10-20 05:10] LABS: Band 27 % (5-11); CellaVision Operator ID lab.sh2; Lymphocytes 12 % (21-51); Neutrophil 62 % (42-75); Platelet Adequacy Comment Significant decrease; Polychromasia SLIGHT = 2-3 cells HPF (0-2); Smudge Cells 42.3 %; Total Cell Count 26
[2023-10-20 05:22] LABS: ALT (SGPT) 148 U/L (8-55); AST (SGOT) 90 U/L (5-34); Albumin 2.9 g/dL (3.5-5.0); Alkaline Phosphatase 682 U/L (40-110); Anion Gap 14 mmol/L (10-20); BUN (Urea Nitrogen) 26 mg/dL (8.9-20.6); Bilirubin, Total 2.3 mg/dL (0.2-1.2); Calc. Creatinine Clearance 167 mL/min (70-130); Carbon Dioxide 32 mmol/L (22-29); Chloride 94 mmol/L (98-107); Estimated GFR 122; Globulin 1.8 g/dL (2.4-3.5); Glucose 375 mg/dL (70-105); Potassium 3.9 mmol/L (3.5-5.1); Protein, Total 4.7 g/dL (6.0-8.3); Sodium 136 mmol/L (136-145); Uric Acid 4.4 mg/dL (3.5-7.2)
[2023-10-20 05:29] LABS: Hematocrit 20.6 % (42.0-52.0); Hemoglobin 7.3 g/dL (14.0-18.0); Manual Diff?? YES; Mean Corpuscular HGB CONC 35.4 g/dL (32.0-36.0); Mean Corpuscular Hemoglobin 30.8 pg (27.0-31.0); Mean Corpuscular Volume 86.9 fl (78.0-98.0); RBC Distribution Width 13.2 % (11.5-14.5); Red Blood Cell (RBC) Count 2.37 mill/uL (4.70-6.10)
[2023-10-20 05:30] LABS: Platelet Count 5 10x3/uL (130-400)
[2023-10-20 05:33] LABS: Critical Call w/ Read Back 692376 @0532; Delete Auto Diff?? YES
[2023-10-20 06:04] LABS: Band 31 % (5-11); CellaVision Operator ID lab.sh2; Large Platelets 4.8 % (0-5); Lymphocytes 10 % (21-51); Monocytes 2 % (0-10); Neutrophil 57 % (42-75); Platelet Adequacy Comment Significant decrease; RBC Morphology Within Normal Limits; Smudge Cells 28.6 %; Total Cell Count 42
[2023-10-20] MEDS: Insulin Glargine 30 UNITS/0.3 ML VIAL SC SCH (18:19)
[2023-10-20] MEDS: Sodium Chloride 0.9% 1,000 ML IV SCH (20:49)
[2023-10-20] MEDS: HumaLOG 300 UNITS/3 ML VIAL SC PRN (20:52)
[2023-10-21 05:13] LABS: Hematocrit 17.9 % (42.0-52.0); Hemoglobin 6.2 g/dL (14.0-18.0); Manual Diff?? YES; Mean Corpuscular HGB CONC 34.6 g/dL (32.0-36.0); Mean Corpuscular Hemoglobin 30.5 pg (27.0-31.0); Mean Corpuscular Volume 88.2 fl (78.0-98.0); Mean Platelet Volume 11.5 fL (7.4-10.4); RBC Distribution Width 13.2 % (11.5-14.5); Red Blood Cell (RBC) Count 2.03 mill/uL (4.70-6.10); White Blood Cell (WBC) Count 0.6 10x3/uL (4.8-10.8)
[2023-10-21 05:14] LABS: Platelet Count 11 10x3/uL (130-400)
[2023-10-21 05:15] LABS: Critical Call w/ Read Back NUR.MGD@0515; Delete Auto Diff?? YES
[2023-10-21 05:37] LABS: Band 33 % (5-11); CellaVision Operator ID LAB.CLH1; Hypochromia SLIGHT = 6-15 cells HPF (0-5); Lymphocytes 50 % (21-51); Neutrophil 17 % (42-75); Platelet Adequacy Comment Significant decrease; Polychromasia SLIGHT = 2-3 cells HPF (0-2); Total Cell Count 6
[2023-10-21 05:59] LABS: ALT (SGPT) 123 U/L (8-55); AST (SGOT) 73 U/L (5-34); Albumin 2.9 g/dL (3.5-5.0); Alkaline Phosphatase 491 U/L (40-110); Anion Gap 10 mmol/L (10-20); BUN (Urea Nitrogen) 19 mg/dL (8.9-20.6); Bilirubin, Total 2.1 mg/dL (0.2-1.2); Calc. Creatinine Clearance 205 mL/min (70-130); Calcium 8.4 mg/dL (7.8-10.44); Carbon Dioxide 31 mmol/L (22-29); Chloride 101 mmol/L (98-107); Estimated GFR 130; Globulin 1.5 g/dL (2.4-3.5); Glucose 179 mg/dL (70-105); Potassium 4.1 mmol/L (3.5-5.1); Protein, Total 4.4 g/dL (6.0-8.3); Sodium 138 mmol/L (136-145); Uric Acid 2.8 mg/dL (3.5-7.2)
[2023-10-21] MEDS: Insulin Glargine 30 UNITS/0.3 ML VIAL SC SCH (21:06)
[2023-10-22 05:59] LABS: Hematocrit 21.1 % (42.0-52.0); Hemoglobin 7.2 g/dL (14.0-18.0); Manual Diff?? YES; Mean Corpuscular HGB CONC 34.1 g/dL (32.0-36.0); Mean Corpuscular Hemoglobin 29.6 pg (27.0-31.0); Mean Corpuscular Volume 86.8 fl (78.0-98.0); Mean Platelet Volume 11.2 fL (7.4-10.4); RBC Distribution Width 14.3 % (11.5-14.5); Red Blood Cell (RBC) Count 2.43 mill/uL (4.70-6.10); White Blood Cell (WBC) Count 0.6 10x3/uL (4.8-10.8)
[2023-10-22 06:01] LABS: Platelet Count 13 10x3/uL (130-400)
[2023-10-22 06:02] LABS: Delete Auto Diff?? YES
[2023-10-22 06:04] LABS: Critical Call w/ Read Back NUR.BCB @0602
[2023-10-22 06:09] LABS: Hemoglobin A1c 5.8 % (4.0-6.0)
[2023-10-22 06:17] LABS: ALT (SGPT) 138 U/L (8-55); AST (SGOT) 72 U/L (5-34); Alkaline Phosphatase 497 U/L (40-110); Anion Gap 11 mmol/L (10-20); BUN (Urea Nitrogen) 16 mg/dL (8.9-20.6); Bilirubin, Total 1.8 mg/dL (0.2-1.2); Calc. Creatinine Clearance 157 mL/min (70-130); Calcium 8.8 mg/dL (7.8-10.44); Carbon Dioxide 28 mmol/L (22-29); Chloride 101 mmol/L (98-107); Estimated GFR 121; Globulin 1.4 g/dL (2.4-3.5); Glucose 338 mg/dL (70-105); Potassium 3.9 mmol/L (3.5-5.1); Protein, Total 4.4 g/dL (6.0-8.3); Sodium 136 mmol/L (136-145); Uric Acid Less than 2.0 mg/dL (3.5-7.2)
[2023-10-22 06:39] LABS: Band 11 % (5-11); CellaVision Operator ID lab.sh2; Large Platelets 10.5 % (0-5); Lymphocytes 37 % (21-51); Macrocytosis SLIGHT = 6-15 cells HPF (0-5); Monocytes 21 % (0-10); Neutrophil 32 % (42-75); Platelet Adequacy Comment Significant decrease; Polychromasia SLIGHT = 2-3 cells HPF (0-2); Smudge Cells 26.3 %; Total Cell Count 19
[2023-10-22] MEDS: HumaLOG 300 UNITS/3 ML VIAL SC PRN (13:39)
[2023-10-22] MEDS: SODIUM CHLORIDE 0.9% IVPB SCH (14:23)
[2023-10-22] MEDS: CYCLOPHOSPHAMIDE IVPB SCH (14:23)
[2023-10-23] MEDS ORDERED: PEGFILGRASTIM-JMDB 6 MG/0.6 ML SYRINGE SQ SCH (06:00)
[2023-10-23 06:15] LABS: Hematocrit 22.5 % (42.0-52.0); Hemoglobin 7.7 g/dL (14.0-18.0); Manual Diff?? YES; Mean Corpuscular HGB CONC 34.2 g/dL (32.0-36.0); Mean Corpuscular Hemoglobin 29.7 pg (27.0-31.0); Mean Corpuscular Volume 86.9 fl (78.0-98.0); Mean Platelet Volume 11.2 fL (7.4-10.4); RBC Distribution Width 14.1 % (11.5-14.5); Red Blood Cell (RBC) Count 2.59 mill/uL (4.70-6.10); White Blood Cell (WBC) Count 0.8 10x3/uL (4.8-10.8)
[2023-10-23 06:16] LABS: Platelet Count 19 10x3/uL (130-400)
[2023-10-23 06:17] LABS: Critical Call w/ Read Back NUR.SAP1@0617; Delete Auto Diff?? YES
[2023-10-23 06:43] LABS: ALT (SGPT) 138 U/L (8-55); AST (SGOT) 65 U/L (5-34); Albumin 3.2 g/dL (3.5-5.0); Alkaline Phosphatase 431 U/L (40-110); Anion Gap 11 mmol/L (10-20); BUN (Urea Nitrogen) 14 mg/dL (8.9-20.6); Bilirubin, Total 1.9 mg/dL (0.2-1.2); Calc. Creatinine Clearance 162 mL/min (70-130); Calcium 8.4 mg/dL (7.8-10.44); Carbon Dioxide 27 mmol/L (22-29); Chloride 101 mmol/L (98-107); Estimated GFR 122; Globulin 1.7 g/dL (2.4-3.5); Glucose 141 mg/dL (70-105); Potassium 3.3 mmol/L (3.5-5.1); Protein, Total 4.9 g/dL (6.0-8.3); Sodium 136 mmol/L (136-145); Uric Acid 2.6 mg/dL (3.5-7.2)
[2023-10-23 06:44] LABS: Anisocytosis SLIGHT = 6-15 cells HPF (0-5); Band 29 % (5-11); CellaVision Operator ID LAB.CLH1; Hypochromia SLIGHT = 6-15 cells HPF (0-5); Large Platelets 42.9 % (0-5); Lymphocytes 57 % (21-51); Neutrophil 14 % (42-75); Platelet Adequacy Comment Significant decrease; Polychromasia SLIGHT = 2-3 cells HPF (0-2); Total Cell Count 7
[2023-10-23] MEDS: Potassium Chloride 20 MEQ TAB PO SCH (09:42)
[2023-10-23 15:23] VITALS: BMI 25.5
[2023-10-23] MEDS: PEGFILGRASTIM-JMDB 6 MG/0.6 ML SYRINGE SQ SCH (17:18)
[2023-10-24 05:21] LABS: Manual Diff?? YES; Mean Corpuscular HGB CONC 33.3 g/dL (32.0-36.0); Mean Corpuscular Hemoglobin 29.3 pg (27.0-31.0); Mean Corpuscular Volume 87.9 fl (78.0-98.0); RBC Distribution Width 14.2 % (11.5-14.5); Red Blood Cell (RBC) Count 2.73 mill/uL (4.70-6.10); White Blood Cell (WBC) Count 1.8 10x3/uL (4.8-10.8)
[2023-10-24 05:31] LABS: Platelet Count 23 10x3/uL (130-400)
[2023-10-24 05:32] LABS: Delete Auto Diff?? YES
[2023-10-24 05:37] LABS: ALT (SGPT) 140 U/L (8-55); AST (SGOT) 64 U/L (5-34); Albumin 3.4 g/dL (3.5-5.0); Alkaline Phosphatase 391 U/L (40-110); Anion Gap 11 mmol/L (10-20); BUN (Urea Nitrogen) 18 mg/dL (8.9-20.6); Bilirubin, Total 2.2 mg/dL (0.2-1.2); Calc. Creatinine Clearance 155 mL/min (70-130); Calcium 9.1 mg/dL (7.8-10.44); Carbon Dioxide 30 mmol/L (22-29); Chloride 100 mmol/L (98-107); Estimated GFR 121; Globulin 1.8 g/dL (2.4-3.5); Glucose 89 mg/dL (70-105); Potassium 4.6 mmol/L (3.5-5.1); Protein, Total 5.2 g/dL (6.0-8.3); Sodium 136 mmol/L (136-145); Uric Acid 2.6 mg/dL (3.5-7.2)
[2023-10-24 06:08] LABS: Band 26 % (5-11); CellaVision Operator ID lab.sh2; Eosinophils 1 % (0-10); Large Platelets 3.9 % (0-5); Lymphocytes 21 % (21-51); Macrocytosis SLIGHT = 6-15 cells HPF (0-5); Monocytes 16 % (0-10); Neutrophil 36 % (42-75); Platelet Adequacy Comment Significant decrease; Polychromasia SLIGHT = 2-3 cells HPF (0-2); Smudge Cells 5.9 %; Total Cell Count 102
[2023-10-24] MEDS: Sodium Chloride 0.9% 500 ML IV SCH (23:24)
[2023-10-25 00:12] LABS: Anion Gap 13 mmol/L (10-20); BUN (Urea Nitrogen) 24 mg/dL (8.9-20.6); Calc. Creatinine Clearance 135 mL/min (70-130); Calcium 8.9 mg/dL (7.8-10.44); Carbon Dioxide 27 mmol/L (22-29); Chloride 96 mmol/L (98-107); Estimated GFR 116; Glucose 169 mg/dL (70-105); Magnesium 2.3 mg/dL (1.6-2.6); Potassium 4.4 mmol/L (3.5-5.1); Sodium 132 mmol/L (136-145)
[2023-10-25 05:24] LABS: Hematocrit 22.4 % (42.0-52.0); Hemoglobin 7.5 g/dL (14.0-18.0); Manual Diff?? YES; Mean Corpuscular HGB CONC 33.5 g/dL (32.0-36.0); Mean Corpuscular Hemoglobin 29.9 pg (27.0-31.0); Mean Corpuscular Volume 89.2 fl (78.0-98.0); RBC Distribution Width 14.1 % (11.5-14.5); Red Blood Cell (RBC) Count 2.51 mill/uL (4.70-6.10); White Blood Cell (WBC) Count 7.8 10x3/uL (4.8-10.8)
[2023-10-25 05:50] LABS: ALT (SGPT) 118 U/L (8-55); AST (SGOT) 40 U/L (5-34); Albumin 3.6 g/dL (3.5-5.0); Alkaline Phosphatase 383 U/L (40-110); Anion Gap 15 mmol/L (10-20); BUN (Urea Nitrogen) 22 mg/dL (8.9-20.6); Bilirubin, Total 1.6 mg/dL (0.2-1.2); Calc. Creatinine Clearance 144 mL/min (70-130); Calcium 9.1 mg/dL (7.8-10.44); Carbon Dioxide 29 mmol/L (22-29); Chloride 99 mmol/L (98-107); Estimated GFR 118; Glucose 96 mg/dL (70-105); Potassium 4.7 mmol/L (3.5-5.1); Protein, Total 5.6 g/dL (6.0-8.3); Sodium 138 mmol/L (136-145); Uric Acid 3.1 mg/dL (3.5-7.2)
[2023-10-25 06:05] LABS: Delete Auto Diff?? YES
[2023-10-25 06:06] LABS: Platelet Count 23 10x3/uL (130-400)
[2023-10-25 08:17] LABS: Band 26 % (5-11); CellaVision Operator ID LAB.KW3; Large Platelets 3.8 % (0-5); Lymphocytes 9 % (21-51); Monocytes 4 % (0-10); Neutrophil 60 % (42-75); Platelet Adequacy Comment Significant decrease; Polychromasia SLIGHT = 2-3 cells HPF (0-2); Total Cell Count 53
[2023-10-25] MEDS: Loratadine 10 MG TAB PO SCH (17:16)
[2023-10-26 06:54] LABS: Hemoglobin 6.8 g/dL (14.0-18.0); Manual Diff?? YES; Mean Corpuscular Hemoglobin 30.4 pg (27.0-31.0); Mean Corpuscular Volume 89.3 fl (78.0-98.0); Mean Platelet Volume 12.3 fL (7.4-10.4); RBC Distribution Width 14.2 % (11.5-14.5); Red Blood Cell (RBC) Count 2.24 mill/uL (4.70-6.10); White Blood Cell (WBC) Count 10.3 10x3/uL (4.8-10.8)
[2023-10-26 06:57] LABS: Delete Auto Diff?? YES; Platelet Count 24 10x3/uL (130-400)
[2023-10-26 07:15] LABS: ALT (SGPT) 87 U/L (8-55); AST (SGOT) 26 U/L (5-34); Albumin 3.5 g/dL (3.5-5.0); Alkaline Phosphatase 352 U/L (40-110); Anion Gap 14 mmol/L (10-20); BUN (Urea Nitrogen) 20 mg/dL (8.9-20.6); Bilirubin, Total 1.4 mg/dL (0.2-1.2); Calc. Creatinine Clearance 146 mL/min (70-130); Calcium 8.8 mg/dL (7.8-10.44); Carbon Dioxide 29 mmol/L (22-29); Chloride 100 mmol/L (98-107); Estimated GFR 119; Globulin 1.9 g/dL (2.4-3.5); Glucose 111 mg/dL (70-105); Potassium 4.2 mmol/L (3.5-5.1); Protein, Total 5.4 g/dL (6.0-8.3); Sodium 139 mmol/L (136-145)
[2023-10-26 08:42] LABS: Anisocytosis SLIGHT = 6-15 cells (100X) (0-5/hpf); Band 4 % (5-11); Lymphocytes 7 % (21-51); Neutrophil 89 % (42-75); Ovalocytes SLIGHT = 2-5 cells (100X) (0-1/hpf)
[2023-10-26 08:43] LABS: Platelet Adequacy Comment Significant decrease
[2023-10-26] MEDS: Loratadine 10 MG TAB PO SCH (08:46)
[2023-10-26 18:25] LABS: Hematocrit 22.5 % (42.0-52.0); Hemoglobin 7.7 g/dL (14.0-18.0)
[2023-10-27 06:24] LABS: Hematocrit 19.9 % (42.0-52.0); Hemoglobin 6.6 g/dL (14.0-18.0); Manual Diff?? YES; Mean Corpuscular HGB CONC 33.2 g/dL (32.0-36.0); Mean Corpuscular Volume 90.5 fl (78.0-98.0); Mean Platelet Volume 13.1 fL (7.4-10.4); RBC Distribution Width 14.6 % (11.5-14.5); White Blood Cell (WBC) Count 5.8 10x3/uL (4.8-10.8)
[2023-10-27 07:23] LABS: ALT (SGPT) 71 U/L (8-55); AST (SGOT) 26 U/L (5-34); Albumin 3.3 g/dL (3.5-5.0); Alkaline Phosphatase 305 U/L (40-110); Anion Gap 11 mmol/L (10-20); BUN (Urea Nitrogen) 20 mg/dL (8.9-20.6); Bilirubin, Total 1.1 mg/dL (0.2-1.2); Calc. Creatinine Clearance 160 mL/min (70-130); Calcium 8.2 mg/dL (7.8-10.44); Carbon Dioxide 29 mmol/L (22-29); Chloride 102 mmol/L (98-107); Estimated GFR 122; Globulin 1.8 g/dL (2.4-3.5); Glucose 87 mg/dL (70-105); Protein, Total 5.1 g/dL (6.0-8.3); Sodium 138 mmol/L (136-145)
[2023-10-27 07:38] LABS: Delete Auto Diff?? YES; Platelet Count 23 10x3/uL (130-400)
[2023-10-27 08:21] LABS: Anisocytosis SLIGHT = 6-15 cells HPF (0-5); Band 4 % (5-11); CellaVision Operator ID LAB.CMB; Large Platelets 4.8 % (0-5); Lymphocytes 16 % (21-51); Metamyelocyte 2 % (0-0); Monocytes 7 % (0-10); Neutrophil 70 % (42-75); Nucleated RBC (Manual Ct) 1 % (0); Ovalocytes SLIGHT = 2-5 cells HPF (0-1); Platelet Adequacy Comment Significant decrease; Polychromasia SLIGHT = 2-3 cells HPF (0-2); Reactive Lymphocytes 1 % (0-10); Total Cell Count 105
[2023-10-28 04:31] LABS: Delete Auto Diff?? YES; Hematocrit 24.5 % (42.0-52.0); Hemoglobin 8.3 g/dL (14.0-18.0); Manual Diff?? YES; Mean Corpuscular HGB CONC 33.9 g/dL (32.0-36.0); Mean Corpuscular Hemoglobin 30.9 pg (27.0-31.0); Mean Corpuscular Volume 91.1 fl (78.0-98.0); Mean Platelet Volume 11.7 fL (7.4-10.4); Platelet Count 26 10x3/uL (130-400); Red Blood Cell (RBC) Count 2.69 mill/uL (4.70-6.10); White Blood Cell (WBC) Count 3.6 10x3/uL (4.8-10.8)
[2023-10-28 04:42] LABS: ALT (SGPT) 67 U/L (8-55); AST (SGOT) 30 U/L (5-34); Albumin 3.6 g/dL (3.5-5.0); Alkaline Phosphatase 293 U/L (40-110); Anion Gap 10 mmol/L (10-20); BUN (Urea Nitrogen) 19 mg/dL (8.9-20.6); Bilirubin, Total 1.4 mg/dL (0.2-1.2); Calc. Creatinine Clearance 137 mL/min (70-130); Calcium 8.8 mg/dL (7.8-10.44); Carbon Dioxide 30 mmol/L (22-29); Chloride 101 mmol/L (98-107); Estimated GFR 116; Globulin 1.9 g/dL (2.4-3.5); Glucose 137 mg/dL (70-105); Potassium 3.9 mmol/L (3.5-5.1); Protein, Total 5.5 g/dL (6.0-8.3); Sodium 137 mmol/L (136-145)
[2023-10-28 05:10] LABS: Anisocytosis SLIGHT = 6-15 cells HPF (0-5); Band 3 % (5-11); CellaVision Operator ID lab.abc; Eosinophils 1 % (0-10); Large Platelets 10.2 % (0-5); Lymphocytes 19 % (21-51); Monocytes 5 % (0-10); Neutrophil 73 % (42-75); Nucleated RBC (Manual Ct) 1 % (0); Platelet Adequacy Comment Significant decrease; Polychromasia SLIGHT = 2-3 cells HPF (0-2); Smudge Cells 15.3 %; Total Cell Count 118
[2023-10-28 13:08] VITALS: BP 116/71; TEMP 97.4
== END 2023-10-28 15:45 | disposition home or self-care (01) | DRG 823 ==
LOC: ERS 07:29 → ERHOLD 11:47 → MSONC 16:33 → IMCU/EMU 10-16 13:23 → MSONC 10-21 19:54
PROVIDERS: ADMIT Internal Medicine; ATTEND Internal Medicine
PROC: 07963ZX Drainage of Left Axillary Lymphatic, Percutaneous Approach, Diagnostic (ICD-10-PCS; principal; 2023-10-11)
PROC: 079T3ZX Drainage of Bone Marrow, Percutaneous Approach, Diagnostic (ICD-10-PCS; 2023-10-15)
PROC: 07DR3ZX Extraction of Iliac Bone Marrow, Percutaneous Approach, Diagnostic (ICD-10-PCS; 2023-10-15)
DX: C83.7 Burkitt lymphoma (principal); D61.810 Antineoplastic chemotherapy induced pancytopenia; E88.3 Tumor lysis syndrome; I26.93 Single subsegmental thrombotic pulmonary embolism without acute cor pulmonale; J18.9 Pneumonia, unspecified organism; I26.99 Other pulmonary embolism without acute cor pulmonale; K72.00 Acute and subacute hepatic failure without coma; C95.00 Acute leukemia of unspecified cell type not having achieved remission; C83.34 Diffuse large B-cell lymphoma, lymph nodes of axilla and upper limb; E87.20 Acidosis, unspecified; Z51.5 Encounter for palliative care; D69.6 Thrombocytopenia, unspecified; E11.649 Type 2 diabetes mellitus with hypoglycemia without coma; R74.01 Elevation of levels of liver transaminase levels; R63.4 Abnormal weight loss; D64.9 Anemia, unspecified; T45.1X5A Adverse effect of antineoplastic and immunosuppressive drugs, initial encounter; E11.40 Type 2 diabetes mellitus with diabetic neuropathy, unspecified; E87.6 Hypokalemia; Z87.891 Personal history of nicotine dependence; Z88.0 Allergy status to penicillin; Z98.890 Other specified postprocedural states; Z68.25 Body mass index [BMI] 25.0-25.9, adult; Z91.89 Other specified personal risk factors, not elsewhere classified
CPT/HCPCS: 36415; 36416; 36430; 36600; 38222; 38505; 70491; 71045; 71260; 71275; 72100; 72131; 72148; 74177; 76705; 77002; 80053; 80074; 80202; 80306; 81001; 82533; 82550; 82805; 83036; 83605; 83615; 83690; 83735; 83880; 84443; 84484; 84550; 85025; 85049; 85097; 85300; 85362; 85384; 85610; 85730; 86850; 86900; 86901; 87040; 87389; 88121; 88184; 88185; 88237; 88305; 88307; 88311; 88313; 88341; 88342; 88360; 93005; 93010; 93306; 96372; J0692; J1100; J1650; J1815; J2250; J2270; J2272; J2405; J2469; J2506; J2783; J3010; J3370; J3490; J7030; J7042; J7050; J7070; J7120; J7512; J7999; J9000; J9070; J9181; J9370; P9016; P9035; Q0162; Q9967; S0028

== ENCOUNTER 2023-10-30 23:19 | Emergency (ER) | payer OTHER ==
[~2023-10-30 23:19] MED LIST changes: +Iopamidol 370 76% 100 ML VIAL ONE; -Iopamidol-370 76% 500 ML 1 ML ONE
[2023-10-30 23:54] LABS: Hematocrit 24.6 % (42.0-52.0); Hemoglobin 7.9 g/dL (14.0-18.0); Manual Diff?? YES; Mean Corpuscular HGB CONC 32.1 g/dL (32.0-36.0); Mean Corpuscular Hemoglobin 31.5 pg (27.0-31.0); Mean Platelet Volume 10.6 fL (7.4-10.4); RBC Distribution Width 20.8 % (11.5-14.5); Red Blood Cell (RBC) Count 2.51 mill/uL (4.70-6.10); White Blood Cell (WBC) Count 3.8 10x3/uL (4.8-10.8)
[2023-10-30 23:56] LABS: Delete Auto Diff?? YES; Platelet Count 49 10x3/uL (130-400)
[2023-10-31 00:19] LABS: Anisocytosis SLIGHT = 6-15 cells HPF (0-5); Band 20 % (5-11); CellaVision Operator ID LAB.CLH1; Eosinophils 2 % (0-10); Hypochromia SLIGHT = 6-15 cells HPF (0-5); Lymphocytes 13 % (21-51); Monocytes 7 % (0-10); Neutrophil 56 % (42-75); Nucleated RBC (Manual Ct) 1 % (0); Platelet Adequacy Comment Platelets Decreased; Polychromasia SLIGHT = 2-3 cells HPF (0-2); Total Cell Count 97
[2023-10-31 00:20] LABS: ALT (SGPT) 51 U/L (8-55); AST (SGOT) 24 U/L (5-34); Albumin 3.6 g/dL (3.5-5.0); Alkaline Phosphatase 233 U/L (40-110); Anion Gap 15 mmol/L (10-20); BUN (Urea Nitrogen) 13 mg/dL (8.9-20.6); Bilirubin, Total 0.9 mg/dL (0.2-1.2); Calc. Creatinine Clearance 0 mL/min (70-130); Calcium 8.9 mg/dL (7.8-10.44); Carbon Dioxide 25 mmol/L (22-29); Chloride 105 mmol/L (98-107); Estimated GFR 113; Globulin 1.9 g/dL (2.4-3.5); Glucose 138 mg/dL (70-105); Lipase 65 U/L (8-78); Magnesium 2.4 mg/dL (1.6-2.6); Potassium 3.7 mmol/L (3.5-5.1); Protein, Total 5.5 g/dL (6.0-8.3); Sodium 141 mmol/L (136-145)
[2023-10-31 00:23] LABS: Troponin I Less than 0.010 ng/mL (< 0.028)
[2023-10-31] MEDS ORDERED: fentaNYL 50 mcg/mL 1 mL Vial ONE (00:30)
== END 2023-10-31 02:47 | disposition left against medical advice (07) ==
LOC: ERS 23:19
DX: R07.81 Pleurodynia (principal); D73.5 Infarction of spleen; D69.6 Thrombocytopenia, unspecified; Z87.891 Personal history of nicotine dependence
CPT/HCPCS: 36415; 71045; 71275; 80053; 83605; 83690; 83735; 83880; 84484; 85025; 93005; J3010

== ENCOUNTER 2023-10-31 11:14 | Emergency (ER) | payer OTHER ==
[2023-10-31 12:27] LABS: Hematocrit 23.6 % (42.0-52.0); Hemoglobin 7.6 g/dL (14.0-18.0); Manual Diff?? YES; Mean Corpuscular HGB CONC 32.2 g/dL (32.0-36.0); Mean Corpuscular Hemoglobin 31.9 pg (27.0-31.0); Mean Corpuscular Volume 99.2 fl (78.0-98.0); Mean Platelet Volume 10.9 fL (7.4-10.4); RBC Distribution Width 21.5 % (11.5-14.5); Red Blood Cell (RBC) Count 2.38 mill/uL (4.70-6.10); White Blood Cell (WBC) Count 3.1 10x3/uL (4.8-10.8)
[2023-10-31 12:28] LABS: Delete Auto Diff?? YES; Platelet Count 48 10x3/uL (130-400)
[2023-10-31 12:38] LABS: INR-International Normal Ratio 0.9; Prothrombin Time 12.3 sec (12.0-14.7)
[2023-10-31] MEDS ORDERED: Acetaminophen 500 MG TAB ONE (12:48)
[2023-10-31 12:49] LABS: ALT (SGPT) 47 U/L (8-55); AST (SGOT) 22 U/L (5-34); Albumin 3.5 g/dL (3.5-5.0); Alkaline Phosphatase 218 U/L (40-110); Anion Gap 9 mmol/L (10-20); BUN (Urea Nitrogen) 12 mg/dL (8.9-20.6); Bilirubin, Total 0.8 mg/dL (0.2-1.2); Calc. Creatinine Clearance 0 mL/min (70-130); Calcium 8.8 mg/dL (7.8-10.44); Carbon Dioxide 28 mmol/L (22-29); Chloride 107 mmol/L (98-107); Estimated GFR 112; Globulin 1.8 g/dL (2.4-3.5); Glucose 114 mg/dL (70-105); Lipase 75 U/L (8-78); Magnesium 2.1 mg/dL (1.6-2.6); Potassium 3.7 mmol/L (3.5-5.1); Protein, Total 5.3 g/dL (6.0-8.3); Sodium 140 mmol/L (136-145)
[2023-10-31] MEDS ORDERED: Enoxaparin 80 MG (0.8 mL) SYRINGE ONE (12:49)
[2023-10-31] MEDS ORDERED: Ibuprofen 200 MG TAB ONE (12:49)
[2023-10-31 12:53] LABS: Troponin I Less than 0.010 ng/mL (< 0.028)
[2023-10-31 12:55] LABS: Anisocytosis SLIGHT = 6-15 cells HPF (0-5); Band 31 % (5-11); CellaVision Operator ID LAB.MJL; Eosinophils 1 % (0-10); Lymphocytes 11 % (21-51); Monocytes 1 % (0-10); Neutrophil 54 % (42-75); Ovalocytes SLIGHT = 2-5 cells HPF (0-1); Platelet Adequacy Comment Platelets Decreased; Polychromasia MODERATE = 3-4 cells HPF (0-2); Total Cell Count 100; Toxic Granulation SLIGHT
[2023-10-31 15:29] LABS: Troponin I Less than 0.010 ng/mL (< 0.028)
[2023-10-31 15:41] LABS: Lactic Acid 1.8 mmol/L (0.5-2.2)
== END 2023-10-31 16:50 | disposition home or self-care (01) ==
LOC: ERS 11:14 → MSONC 13:23 → UNDOADMIN 13:23
DX: R07.81 Pleurodynia (principal); D73.5 Infarction of spleen; D69.6 Thrombocytopenia, unspecified; Z87.891 Personal history of nicotine dependence; C83.78 Burkitt lymphoma, lymph nodes of multiple sites
CPT/HCPCS: 36415; 36416; 71045; 71275; 80053; 82248; 83605; 83615; 83690; 83735; 83880; 84100; 84484; 84550; 85025; 85610; 85730; 86850; 86900; 86901; 87040; 93005; 94760; 96360; J1650; J3010; Q9967

== ENCOUNTER 2023-11-13 04:52 | Inpatient (IN) | payer OTHER ==
[2023-11-13] MEDS ORDERED: Acetaminophen 325 MG TAB PO PRN (09:29)
[2023-11-13] MEDS ORDERED: Ondansetron PF 4 MG/2 ML Vial IVP PRN (09:43)
[2023-11-13 09:58] VITALS: BMI 25.7
[2023-11-13] MEDS: Dexamethasone Sod Phosphate 20 MG in Sodium Chloride 0.9% 50 ML IVPB SCH (11:59)
[2023-11-13] MEDS: Famotidine/PF 20 MG in Sodium Chloride 0.9% 50 ML IVPB SCH (12:36)
[2023-11-13 12:57] LABS: #Basophils Less than 0.03 10x3/uL (0.0-0.2); %Basophils 0.4 % (0.0-1.0); %Eosinophils 4.9 % (0.0-10.0); %Lymphocytes 15.2 % (21.0-51.0); %Monocytes 11.7 % (0.0-10.0); %Neutrophils 67.4 % (42.0-75.0); Hematocrit 31.6 % (42.0-52.0); Hemoglobin 10.3 g/dL (14.0-18.0); Mean Corpuscular HGB CONC 32.6 g/dL (32.0-36.0); Mean Corpuscular Hemoglobin 33.2 pg (27.0-31.0); Mean Corpuscular Volume 101.9 fL (78.0-98.0); Mean Platelet Volume 10.3 fL (7.4-10.4); Platelet Count 118 10x3/uL (130-400); RBC Distribution Width 22.1 % (11.5-14.5)
[2023-11-13 13:17] LABS: ALT (SGPT) 21 U/L (8-55); AST (SGOT) 17 U/L (5-34); Albumin 4.1 g/dL (3.5-5.0); Alkaline Phosphatase 98 U/L (40-110); Anion Gap 10 mmol/L (10-20); Anisocytosis SLIGHT = 6-15 cells HPF (0-5); BUN (Urea Nitrogen) 10 mg/dL (8.9-20.6); Bilirubin, Total 0.6 mg/dL (0.2-1.2); Calc. Creatinine Clearance 124 mL/min (70-130); Calcium 9.1 mg/dL (7.8-10.44); Carbon Dioxide 27 mmol/L (22-29); Chloride 107 mmol/L (98-107); Estimated GFR 113; Globulin 1.9 g/dL (2.4-3.5); Glucose 98 mg/dL (70-105); Hypochromia SLIGHT = 6-15 cells HPF (0-5); Macrocytosis SLIGHT = 6-15 cells HPF (0-5); Ovalocytes SLIGHT = 2-5 cells HPF (0-1); Platelet Adequacy Comment Platelets Decreased; Poikilocytosis SLIGHT = 6-15 cells HPF (0-5); Polychromasia SLIGHT = 2-3 cells HPF (0-2); Potassium 4.1 mmol/L (3.5-5.1); Sodium 140 mmol/L (136-145); Tear Drops SLIGHT = 2-5 cells HPF (0-1)
[2023-11-13] MEDS: ETOPOSIDE IVPB SCH (15:56)
[2023-11-13] MEDS: SODIUM CHLORIDE 0.9% IVPB SCH ×2 (15:56→17:10)
[2023-11-13] MEDS: DOXORUBICIN IVPB SCH (17:10)
[2023-11-13] MEDS: VINCRISTINE SULFATE IVPB SCH (17:10)
[2023-11-13] MEDS: FLU VACC QS2023-24(6MOS UP)/PF 60 MCG/0.5 ML SYRINGE IM ONE (17:26)
[2023-11-13] MEDS: Sulfameth/Trimethoprim DS 800-160mg TAB PO SCH (21:25)
[2023-11-13] MEDS: Famotidine 20 MG TAB PO SCH (21:26)
[2023-11-13] MEDS: Apixaban 5 MG TAB PO SCH (21:26)
[2023-11-13] MEDS: traZODone HCl 50 MG TAB PO SCH (23:20)
[2023-11-14 05:36] LABS: #Basophils Less than 0.03 10x3/uL (0.0-0.2); #Eosinphils Less than 0.03 10x3/uL (0.0-0.7); %Lymphocytes 6.5 % (21.0-51.0); %Monocytes 6.9 % (0.0-10.0); %Neutrophils 85.9 % (42.0-75.0); Hematocrit 31.5 % (42.0-52.0); Hemoglobin 10.6 g/dL (14.0-18.0); Mean Corpuscular HGB CONC 33.7 g/dL (32.0-36.0); Mean Corpuscular Hemoglobin 33.9 pg (27.0-31.0); Mean Corpuscular Volume 100.6 fL (78.0-98.0); Mean Platelet Volume 9.8 fL (7.4-10.4); Platelet Count 124 10x3/uL (130-400); Red Blood Cell (RBC) Count 3.13 mill/uL (4.70-6.10)
[2023-11-14 06:00] LABS: ALT (SGPT) 22 U/L (8-55); AST (SGOT) 16 U/L (5-34); Albumin 4.3 g/dL (3.5-5.0); Alkaline Phosphatase 99 U/L (40-110); Anion Gap 13 mmol/L (10-20); BUN (Urea Nitrogen) 12 mg/dL (8.9-20.6); Bilirubin, Total 0.6 mg/dL (0.2-1.2); Calc. Creatinine Clearance 120 mL/min (70-130); Calcium 9.7 mg/dL (7.8-10.44); Carbon Dioxide 23 mmol/L (22-29); Chloride 104 mmol/L (98-107); Estimated GFR 111; Glucose 139 mg/dL (70-105); Potassium 4.3 mmol/L (3.5-5.1); Protein, Total 6.3 g/dL (6.0-8.3); Sodium 136 mmol/L (136-145); Uric Acid 3.5 mg/dL (3.5-7.2)
[2023-11-14 06:36] LABS: Anisocytosis SLIGHT = 6-15 cells HPF (0-5); Macrocytosis SLIGHT = 6-15 cells HPF (0-5); Platelet Adequacy Comment Platelets Decreased; Polychromasia SLIGHT = 2-3 cells HPF (0-2)
[2023-11-14] MEDS: predniSONE 50 MG TAB PO SCH (10:00)
[2023-11-14] MEDS: traZODone HCl 50 MG TAB PO PRN (22:30)
[2023-11-15 05:14] LABS: #Basophils Less than 0.03 10x3/uL (0.0-0.2); #Eosinphils Less than 0.03 10x3/uL (0.0-0.7); %Lymphocytes 10.5 % (21.0-51.0); %Monocytes 10.1 % (0.0-10.0); Hematocrit 31.4 % (42.0-52.0); Hemoglobin 10.7 g/dL (14.0-18.0); Mean Corpuscular HGB CONC 34.1 g/dL (32.0-36.0); Mean Corpuscular Hemoglobin 34.1 pg (27.0-31.0); Mean Platelet Volume 10.4 fL (7.4-10.4); Platelet Count 129 10x3/uL (130-400); Red Blood Cell (RBC) Count 3.14 mill/uL (4.70-6.10)
[2023-11-15 05:34] LABS: ALT (SGPT) 16 U/L (8-55); AST (SGOT) 12 U/L (5-34); Alkaline Phosphatase 87 U/L (40-110); Anion Gap 13 mmol/L (10-20); BUN (Urea Nitrogen) 15 mg/dL (8.9-20.6); Bilirubin, Total 0.5 mg/dL (0.2-1.2); Calc. Creatinine Clearance 135 mL/min (70-130); Calcium 9.1 mg/dL (7.8-10.44); Carbon Dioxide 23 mmol/L (22-29); Chloride 108 mmol/L (98-107); Estimated GFR 115; Globulin 1.8 g/dL (2.4-3.5); Glucose 130 mg/dL (70-105); Potassium 3.6 mmol/L (3.5-5.1); Protein, Total 5.8 g/dL (6.0-8.3); Sodium 140 mmol/L (136-145); Uric Acid 3.4 mg/dL (3.5-7.2)
[2023-11-15 06:30] LABS: Anisocytosis MODERATE=16-30 cells HPF (0-5); Macrocytosis SLIGHT = 6-15 cells HPF (0-5); Ovalocytes SLIGHT = 2-5 cells HPF (0-1); Platelet Adequacy Comment Platelets Decreased; Polychromasia SLIGHT = 2-3 cells HPF (0-2); Tear Drops SLIGHT = 2-5 cells HPF (0-1)
[2023-11-16 06:37] LABS: ALT (SGPT) 18 U/L (8-55); AST (SGOT) 12 U/L (5-34); Albumin 3.9 g/dL (3.5-5.0); Alkaline Phosphatase 83 U/L (40-110); Anion Gap 15 mmol/L (10-20); BUN (Urea Nitrogen) 15 mg/dL (8.9-20.6); Bilirubin, Total 0.6 mg/dL (0.2-1.2); Calc. Creatinine Clearance 142 mL/min (70-130); Calcium 8.9 mg/dL (7.8-10.44); Carbon Dioxide 24 mmol/L (22-29); Chloride 105 mmol/L (98-107); Estimated GFR 116; Globulin 1.9 g/dL (2.4-3.5); Glucose 91 mg/dL (70-105); Potassium 3.8 mmol/L (3.5-5.1); Protein, Total 5.8 g/dL (6.0-8.3); Sodium 140 mmol/L (136-145); Uric Acid 2.9 mg/dL (3.5-7.2)
[2023-11-16 06:39] LABS: #Basophils Less than 0.03 10x3/uL (0.0-0.2); #Eosinphils Less than 0.03 10x3/uL (0.0-0.7); %Eosinophils 0.2 % (0.0-10.0); %Lymphocytes 11.8 % (21.0-51.0); %Monocytes 10.7 % (0.0-10.0); %Neutrophils 77.1 % (42.0-75.0); Hematocrit 31.2 % (42.0-52.0); Hemoglobin 10.5 g/dL (14.0-18.0); Mean Corpuscular HGB CONC 33.7 g/dL (32.0-36.0); Mean Corpuscular Hemoglobin 33.7 pg (27.0-31.0); Mean Platelet Volume 10.1 fL (7.4-10.4); Platelet Count 128 10x3/uL (130-400); Red Blood Cell (RBC) Count 3.12 mill/uL (4.70-6.10)
[2023-11-16 07:45] LABS: Band 2 % (5-11); Lymphocytes 9 % (21-51); Monocytes 5 % (0-10); Neutrophil 84 % (42-75); Platelet Adequacy Comment Platelets Decreased; Polychromasia SLIGHT = 2-3 cells HPF (0-2); Tear Drops SLIGHT = 2-5 cells HPF (0-1)
[2023-11-16] MEDS: Nicotine 21 MG PATCH TD SCH (15:22)
[2023-11-17 06:44] LABS: #Basophils Less than 0.03 10x3/uL (0.0-0.2); #Eosinphils Less than 0.03 10x3/uL (0.0-0.7); %Eosinophils 0.3 % (0.0-10.0); %Lymphocytes 14.2 % (21.0-51.0); %Neutrophils 74.9 % (42.0-75.0); Hematocrit 32.3 % (42.0-52.0); Hemoglobin 11.1 g/dL (14.0-18.0); Mean Corpuscular HGB CONC 34.4 g/dL (32.0-36.0); Mean Corpuscular Hemoglobin 33.3 pg (27.0-31.0); Mean Platelet Volume 9.8 fL (7.4-10.4); Platelet Count 151 10x3/uL (130-400); RBC Distribution Width 20.1 % (11.5-14.5); Red Blood Cell (RBC) Count 3.33 mill/uL (4.70-6.10)
[2023-11-17 09:14] LABS: ALT (SGPT) 21 U/L (8-55); AST (SGOT) 16 U/L (5-34); Albumin 4.1 g/dL (3.5-5.0); Alkaline Phosphatase 85 U/L (40-110); Anion Gap 13 mmol/L (10-20); BUN (Urea Nitrogen) 18 mg/dL (8.9-20.6); Bilirubin, Total 0.7 mg/dL (0.2-1.2); Calc. Creatinine Clearance 145 mL/min (70-130); Calcium 9.3 mg/dL (7.8-10.44); Carbon Dioxide 25 mmol/L (22-29); Chloride 104 mmol/L (98-107); Estimated GFR 117; Globulin 1.8 g/dL (2.4-3.5); Glucose 86 mg/dL (70-105); Potassium 3.5 mmol/L (3.5-5.1); Protein, Total 5.9 g/dL (6.0-8.3); Sodium 138 mmol/L (136-145)
[2023-11-17] MEDS: PALONOSETRON HCL 0.05 MG/ML 5 ML VIAL IVP SCH (14:30)
[2023-11-17] MEDS: SODIUM CHLORIDE 0.9% IVPB SCH (14:36)
[2023-11-17] MEDS: CYCLOPHOSPHAMIDE IVPB SCH (14:36)
[2023-11-17 21:52] VITALS: TEMP 97.5
[2023-11-18 04:16] LABS: #Basophils Less than 0.03 10x3/uL (0.0-0.2); #Eosinphils Less than 0.03 10x3/uL (0.0-0.7); %Eosinophils 0.5 % (0.0-10.0); %Lymphocytes 15.2 % (21.0-51.0); %Monocytes 8.8 % (0.0-10.0); %Neutrophils 75.2 % (42.0-75.0); Hematocrit 28.9 % (42.0-52.0); Mean Corpuscular HGB CONC 34.6 g/dL (32.0-36.0); Mean Corpuscular Hemoglobin 34.2 pg (27.0-31.0); Mean Platelet Volume 9.6 fL (7.4-10.4); Platelet Count 154 10x3/uL (130-400); RBC Distribution Width 19.9 % (11.5-14.5); Red Blood Cell (RBC) Count 2.92 mill/uL (4.70-6.10)
[2023-11-18 04:45] LABS: ALT (SGPT) 19 U/L (8-55); AST (SGOT) 14 U/L (5-34); Albumin 3.9 g/dL (3.5-5.0); Alkaline Phosphatase 80 U/L (40-110); Anion Gap 13 mmol/L (10-20); BUN (Urea Nitrogen) 19 mg/dL (8.9-20.6); Bilirubin, Total 0.6 mg/dL (0.2-1.2); Calc. Creatinine Clearance 140 mL/min (70-130); Calcium 9.2 mg/dL (7.8-10.44); Carbon Dioxide 25 mmol/L (22-29); Chloride 104 mmol/L (98-107); Estimated GFR 115; Globulin 1.7 g/dL (2.4-3.5); Glucose 104 mg/dL (70-105); Potassium 3.4 mmol/L (3.5-5.1); Protein, Total 5.6 g/dL (6.0-8.3); Sodium 139 mmol/L (136-145); Uric Acid 5.5 mg/dL (3.5-7.2)
[2023-11-18 08:33] VITALS: BP 125/64
[2023-11-18] MEDS: Potassium Chloride 20 MEQ TAB PO SCH (13:57)
[2023-11-18] MEDS: PEGFILGRASTIM-JMDB 6 MG/0.6 ML SYRINGE SQ SCH (14:46)
== END 2023-11-18 15:28 | disposition home or self-care (01) | DRG 846 ==
LOC: MSONC 08:59
PROVIDERS: ADMIT Family Medicine; ATTEND Emergency Medicine
DX: Z51.11 Encounter for antineoplastic chemotherapy (principal); I26.93 Single subsegmental thrombotic pulmonary embolism without acute cor pulmonale; J18.9 Pneumonia, unspecified organism; C83.70 Burkitt lymphoma, unspecified site; C95.90 Leukemia, unspecified not having achieved remission; D84.9 Immunodeficiency, unspecified; D61.818 Other pancytopenia; Z88.0 Allergy status to penicillin; R07.81 Pleurodynia; D53.9 Nutritional anemia, unspecified; D69.6 Thrombocytopenia, unspecified; D63.0 Anemia in neoplastic disease; Z91.89 Other specified personal risk factors, not elsewhere classified
CPT/HCPCS: 36415; 80053; 83615; 84550; 85025; 96413; 96415; J1100; J1200; J1642; J2469; J2506; J3490; J7030; J7512; J9000; J9070; J9181; J9370; Q5115; S0028

== ENCOUNTER 2023-12-30 09:30 | Day surgery (SDC) | payer OTHER ==
[~2023-12-30 09:30] MED LIST changes: +Acetaminophen 325 MG TAB PO SCH; -Iopamidol 370 76% 100 ML VIAL ONE; +RITUXIMAB ABBS IVPB SCH; +SODIUM CHLORIDE 0.9% IVPB SCH
[2023-12-30] MEDS: SODIUM CHLORIDE IVPB SCH (09:57)
[2023-12-30] MEDS: DIPHENHYDRAMINE IVPB SCH (09:57)
[2023-12-30] MEDS: ADMIXTURE FEE IVPB SCH (09:57)
[2023-12-30] MEDS: RITUXIMAB ABBS IVPB SCH (10:23)
[2023-12-30] MEDS: SODIUM CHLORIDE 0.9% IVPB SCH (10:23)
[2023-12-30 10:37] LABS: ALT (SGPT) 18 U/L (8-55); AST (SGOT) 15 U/L (5-34); Alkaline Phosphatase 75 U/L (40-110); Anion Gap 12 mmol/L (10-20); BUN (Urea Nitrogen) 11 mg/dL (8.9-20.6); Bilirubin, Total 0.3 mg/dL (0.2-1.2); Calc. Creatinine Clearance 137 mL/min (70-130); Calcium 9.2 mg/dL (7.8-10.44); Carbon Dioxide 26 mmol/L (22-29); Chloride 107 mmol/L (98-107); Estimated GFR 114; Globulin 2.2 g/dL (2.4-3.5); Glucose 91 mg/dL (70-105); Potassium 4.1 mmol/L (3.5-5.1); Protein, Total 6.2 g/dL (6.0-8.3); Sodium 141 mmol/L (136-145)
[2023-12-30 12:39] VITALS: BP 119/67; TEMP 98.7
== END 2023-12-30 14:46 | disposition home or self-care (01) ==
LOC: ONC/OP 09:30
PROVIDERS: ATTEND Internal Medicine
DX: C83.78 Burkitt lymphoma, lymph nodes of multiple sites (principal); D70.9 Neutropenia, unspecified; Z88.0 Allergy status to penicillin
CPT/HCPCS: 36415; 80053; 82248; 83615; 84100; 84550; 96366; 96413; 96415; J1200; J1642; J3490; J7030; Q5115

== ENCOUNTER 2024-01-21 08:54 | Inpatient (IN) | payer OTHER ==
[2024-01-21] MEDS ORDERED: Famotidine/PF 20 mg/2ml Vial SLOW IVP SCH (09:30)
[2024-01-21] MEDS ORDERED: Dexamethasone 20 MG in Sodium Chloride 0.9% 50 ML IVPB SCH (09:30)
[2024-01-21 11:20] LABS: ALT (SGPT) 14 U/L (8-55); AST (SGOT) 13 U/L (5-34); Albumin 3.6 g/dL (3.5-5.0); Alkaline Phosphatase 70 U/L (40-110); Anion Gap 12 mmol/L (10-20); BUN (Urea Nitrogen) 16 mg/dL (8.9-20.6); Bilirubin, Total 0.3 mg/dL (0.2-1.2); Calc. Creatinine Clearance 136 mL/min (70-130); Calcium 8.5 mg/dL (7.8-10.44); Carbon Dioxide 24 mmol/L (22-29); Chloride 109 mmol/L (98-107); Estimated GFR 113; Globulin 1.9 g/dL (2.4-3.5); Glucose 94 mg/dL (70-105); Protein, Total 5.5 g/dL (6.0-8.3); Sodium 141 mmol/L (136-145); Uric Acid 4.9 mg/dL (3.5-7.2)
[2024-01-21] MEDS ORDERED: Ondansetron PF 4 MG/2 ML Vial IVP PRN (11:20)
[2024-01-21] MEDS ORDERED: Senokot S 8.6-50 MG TAB PO PRN (11:20)
[2024-01-21] MEDS ORDERED: Ondansetron ODT 4 MG TAB PO PRN (11:20)
[2024-01-21] MEDS ORDERED: Calcium Carbonate 500 MG ChewTAB PO PRN (11:20)
[2024-01-21] MEDS ORDERED: Acetaminophen 325 MG TAB PO PRN (11:20)
[2024-01-21] MEDS: Dexamethasone Sod Phosphate 20 MG in Sodium Chloride 0.9% 50 ML IVPB SCH (11:21)
[2024-01-21] MEDS: Famotidine/PF 20 MG in Sodium Chloride 0.9% 50 ML IVPB SCH (11:21)
[2024-01-21] MEDS: ETOPOSIDE IVPB SCH (12:58)
[2024-01-21] MEDS: SODIUM CHLORIDE 0.9% IVPB SCH ×2 (12:58→14:24)
[2024-01-21 13:35] VITALS: BMI 27.7
[2024-01-21] MEDS: DOXORUBICIN IVPB SCH (14:24)
[2024-01-21] MEDS: VINCRISTINE SULFATE IVPB SCH (14:24)
[2024-01-21] MEDS: Folic Acid 1 MG TAB PO SCH (21:49)
[2024-01-21] MEDS: Cyanocobalamin (Vitamin B-12) 1,000 MCG TAB PO SCH (21:50)
[2024-01-21] MEDS: Multivit, Therapeutic 1 TAB PO SCH (21:50)
[2024-01-21] MEDS: Apixaban 5 MG TAB PO SCH (21:54)
[2024-01-21] MEDS: traZODone HCl 50 MG TAB PO PRN (22:28)
[2024-01-22 05:42] LABS: #Basophils Less than 0.03 10x3/uL (0.0-0.2); #Eosinphils Less than 0.03 10x3/uL (0.0-0.7); %Basophils 0.1 % (0.0-1.0); %Lymphocytes 2.9 % (21.0-51.0); %Monocytes 5.8 % (0.0-10.0); %Neutrophils 90.4 % (42.0-75.0); Hematocrit 36.7 % (42.0-52.0); Hemoglobin 12.4 g/dL (14.0-18.0); Mean Corpuscular HGB CONC 33.8 g/dL (32.0-36.0); Mean Corpuscular Volume 94.8 fL (78.0-98.0); Mean Platelet Volume 10.2 fL (7.4-10.4); Platelet Count 172 10x3/uL (130-400); RBC Distribution Width 13.3 % (11.5-14.5); Red Blood Cell (RBC) Count 3.87 mill/uL (4.70-6.10)
[2024-01-22 06:03] LABS: ALT (SGPT) 8 U/L (8-55); AST (SGOT) 11 U/L (5-34); Albumin 3.6 g/dL (3.5-5.0); Alkaline Phosphatase 74 U/L (40-110); Anion Gap 12 mmol/L (10-20); BUN (Urea Nitrogen) 16 mg/dL (8.9-20.6); Bilirubin, Total 0.2 mg/dL (0.2-1.2); Calc. Creatinine Clearance 147 mL/min (70-130); Calcium 9.6 mg/dL (7.8-10.44); Carbon Dioxide 22 mmol/L (22-29); Chloride 110 mmol/L (98-107); Estimated GFR 116; Globulin 2.1 g/dL (2.4-3.5); Glucose 139 mg/dL (70-105); Potassium 4.1 mmol/L (3.5-5.1); Protein, Total 5.7 g/dL (6.0-8.3); Sodium 140 mmol/L (136-145)
[2024-01-22] MEDS: Sulfameth/Trimethoprim DS 800-160mg TAB PO SCH (09:31)
[2024-01-22] MEDS: predniSONE 50 MG TAB PO SCH (18:24)
[2024-01-23 06:26] LABS: #Basophils Less than 0.03 10x3/uL (0.0-0.2); #Eosinphils Less than 0.03 10x3/uL (0.0-0.7); %Basophils 0.1 % (0.0-1.0); %Lymphocytes 2.7 % (21.0-51.0); %Monocytes 3.8 % (0.0-10.0); %Neutrophils 92.6 % (42.0-75.0); Hematocrit 37.1 % (42.0-52.0); Hemoglobin 12.5 g/dL (14.0-18.0); Mean Corpuscular HGB CONC 33.7 g/dL (32.0-36.0); Mean Corpuscular Hemoglobin 32.1 pg (27.0-31.0); Mean Corpuscular Volume 95.4 fL (78.0-98.0); Mean Platelet Volume 10.2 fL (7.4-10.4); Platelet Count 174 10x3/uL (130-400); RBC Distribution Width 13.7 % (11.5-14.5); Red Blood Cell (RBC) Count 3.89 mill/uL (4.70-6.10)
[2024-01-23 06:47] LABS: ALT (SGPT) 15 U/L (8-55); AST (SGOT) 12 U/L (5-34); Albumin 3.7 g/dL (3.5-5.0); Alkaline Phosphatase 78 U/L (40-110); Anion Gap 13 mmol/L (10-20); BUN (Urea Nitrogen) 15 mg/dL (8.9-20.6); Bilirubin, Total 0.2 mg/dL (0.2-1.2); Calc. Creatinine Clearance 132 mL/min (70-130); Calcium 9.4 mg/dL (7.8-10.44); Carbon Dioxide 22 mmol/L (22-29); Chloride 110 mmol/L (98-107); Estimated GFR 112; Globulin 2.3 g/dL (2.4-3.5); Glucose 138 mg/dL (70-105); Sodium 141 mmol/L (136-145); Uric Acid 3.3 mg/dL (3.5-7.2)
[2024-01-23] MEDS: Loratadine 10 MG TAB PO SCH (16:52)
[2024-01-24 04:27] LABS: #Basophils Less than 0.03 10x3/uL (0.0-0.2); #Eosinphils Less than 0.03 10x3/uL (0.0-0.7); %Basophils 0.2 % (0.0-1.0); %Lymphocytes 2.6 % (21.0-51.0); %Monocytes 3.8 % (0.0-10.0); %Neutrophils 92.7 % (42.0-75.0); Hematocrit 37.2 % (42.0-52.0); Hemoglobin 12.5 g/dL (14.0-18.0); Mean Corpuscular HGB CONC 33.6 g/dL (32.0-36.0); Mean Corpuscular Hemoglobin 31.5 pg (27.0-31.0); Mean Corpuscular Volume 93.7 fL (78.0-98.0); Mean Platelet Volume 10.5 fL (7.4-10.4); Platelet Count 165 10x3/uL (130-400); RBC Distribution Width 13.5 % (11.5-14.5); Red Blood Cell (RBC) Count 3.97 mill/uL (4.70-6.10)
[2024-01-24 04:49] LABS: ALT (SGPT) 17 U/L (8-55); AST (SGOT) 14 U/L (5-34); Albumin 3.7 g/dL (3.5-5.0); Alkaline Phosphatase 72 U/L (40-110); Anion Gap 14 mmol/L (10-20); BUN (Urea Nitrogen) 17 mg/dL (8.9-20.6); Bilirubin, Total 0.3 mg/dL (0.2-1.2); Calc. Creatinine Clearance 133 mL/min (70-130); Calcium 9.7 mg/dL (7.8-10.44); Carbon Dioxide 24 mmol/L (22-29); Chloride 108 mmol/L (98-107); Estimated GFR 113; Globulin 2.1 g/dL (2.4-3.5); Glucose 139 mg/dL (70-105); Potassium 4.1 mmol/L (3.5-5.1); Protein, Total 5.8 g/dL (6.0-8.3); Sodium 142 mmol/L (136-145)
[2024-01-24] MEDS: Loratadine 10 MG TAB PO SCH (09:59)
[2024-01-24] MEDS: ETOPOSIDE IVPB SCH (16:19)
[2024-01-24] MEDS: SODIUM CHLORIDE 0.9% IVPB SCH (16:19)
[2024-01-24] MEDS: guaiFENesin/DM ER PO SCH (21:00)
[2024-01-25 04:24] LABS: #Basophils Less than 0.03 10x3/uL (0.0-0.2); #Eosinphils Less than 0.03 10x3/uL (0.0-0.7); %Lymphocytes 2.8 % (21.0-51.0); %Neutrophils 94.1 % (42.0-75.0); Hematocrit 37.5 % (42.0-52.0); Hemoglobin 12.6 g/dL (14.0-18.0); Mean Corpuscular HGB CONC 33.6 g/dL (32.0-36.0); Mean Corpuscular Hemoglobin 31.7 pg (27.0-31.0); Mean Corpuscular Volume 94.2 fL (78.0-98.0); Mean Platelet Volume 10.1 fL (7.4-10.4); Platelet Count 151 10x3/uL (130-400); RBC Distribution Width 13.4 % (11.5-14.5); Red Blood Cell (RBC) Count 3.98 mill/uL (4.70-6.10)
[2024-01-25 04:39] LABS: ALT (SGPT) 37 U/L (8-55); AST (SGOT) 24 U/L (5-34); Albumin 3.6 g/dL (3.5-5.0); Alkaline Phosphatase 77 U/L (40-110); Anion Gap 12 mmol/L (10-20); BUN (Urea Nitrogen) 20 mg/dL (8.9-20.6); Bilirubin, Total 0.3 mg/dL (0.2-1.2); Calc. Creatinine Clearance 140 mL/min (70-130); Calcium 9.4 mg/dL (7.8-10.44); Carbon Dioxide 25 mmol/L (22-29); Chloride 106 mmol/L (98-107); Estimated GFR 114; Glucose 143 mg/dL (70-105); Protein, Total 5.6 g/dL (6.0-8.3); Sodium 139 mmol/L (136-145); Uric Acid 3.1 mg/dL (3.5-7.2)
[2024-01-25] MEDS: PALONOSETRON HCL 0.05 MG/ML 5 ML VIAL IVP SCH (17:12)
[2024-01-25] MEDS: SODIUM CHLORIDE 0.9% IVPB SCH (17:20)
[2024-01-25] MEDS: CYCLOPHOSPHAMIDE IVPB SCH (17:20)
[2024-01-26 05:11] LABS: #Basophils Less than 0.03 10x3/uL (0.0-0.2); #Eosinphils Less than 0.03 10x3/uL (0.0-0.7); %Lymphocytes 2.5 % (21.0-51.0); %Monocytes 2.4 % (0.0-10.0); %Neutrophils 94.1 % (42.0-75.0); Hematocrit 35.3 % (42.0-52.0); Hemoglobin 12.2 g/dL (14.0-18.0); Mean Corpuscular HGB CONC 34.6 g/dL (32.0-36.0); Mean Corpuscular Volume 95.4 fL (78.0-98.0); Mean Platelet Volume 10.3 fL (7.4-10.4); Platelet Count 165 10x3/uL (130-400); RBC Distribution Width 13.6 % (11.5-14.5)
[2024-01-26 05:34] LABS: ALT (SGPT) 96 U/L (8-55); AST (SGOT) 49 U/L (5-34); Albumin 3.6 g/dL (3.5-5.0); Alkaline Phosphatase 66 U/L (40-110); Anion Gap 13 mmol/L (10-20); BUN (Urea Nitrogen) 21 mg/dL (8.9-20.6); Bilirubin, Total 0.3 mg/dL (0.2-1.2); Calc. Creatinine Clearance 141 mL/min (70-130); Calcium 9.3 mg/dL (7.8-10.44); Carbon Dioxide 27 mmol/L (22-29); Chloride 104 mmol/L (98-107); Estimated GFR 115; Globulin 1.9 g/dL (2.4-3.5); Glucose 113 mg/dL (70-105); Potassium 4.3 mmol/L (3.5-5.1); Protein, Total 5.5 g/dL (6.0-8.3); Sodium 140 mmol/L (136-145); Uric Acid 3.6 mg/dL (3.5-7.2)
[2024-01-26 18:10] VITALS: BP 171/70; TEMP 97.8
[2024-01-26] MEDS: PEGFILGRASTIM-JMDB 6 MG/0.6 ML SYRINGE SQ SCH (19:20)
== END 2024-01-26 20:00 | disposition home or self-care (01) | DRG 838 ==
LOC: MSONC 08:54
PROVIDERS: ADMIT Internal Medicine; ATTEND Hospitalist
DX: Z51.11 Encounter for antineoplastic chemotherapy (principal); C83.70 Burkitt lymphoma, unspecified site; C95.01 Acute leukemia of unspecified cell type, in remission; Z59.00 Homelessness unspecified; C85.10 Unspecified B-cell lymphoma, unspecified site; D63.0 Anemia in neoplastic disease; F17.210 Nicotine dependence, cigarettes, uncomplicated; Z88.0 Allergy status to penicillin; Z79.899 Other long term (current) drug therapy; Z92.21 Personal history of antineoplastic chemotherapy; Z87.442 Personal history of urinary calculi; D70.9 Neutropenia, unspecified
CPT/HCPCS: 36415; 36416; 80053; 83615; 84550; 85025; 96366; 96413; 96415; J1100; J1200; J1642; J2469; J2506; J3490; J7030; J7512; J9000; J9070; J9181; J9370; Q5115; S0028

== ENCOUNTER 2024-01-31 09:52 | Emergency (ER) | payer OTHER ==
[2024-01-31] MEDS ORDERED: Lidocaine 1% PF 5 ML VIAL ONE (10:48)
[2024-01-31 12:08] LABS: Hematocrit 39.6 % (42.0-52.0); Hemoglobin 13.3 g/dL (14.0-18.0); Mean Corpuscular HGB CONC 33.6 g/dL (32.0-36.0); Mean Corpuscular Hemoglobin 32.4 pg (27.0-31.0); Mean Corpuscular Volume 96.4 fL (78.0-98.0); Mean Platelet Volume 11.3 fL (7.4-10.4); Platelet Count 145 10x3/uL (130-400); RBC Distribution Width 14.5 % (11.5-14.5); Red Blood Cell (RBC) Count 4.11 mill/uL (4.70-6.10)
[2024-01-31 12:13] LABS: Amphetamine Not Detected (NotDetected); Barbiturates Screen Not Detected (NotDetected); Benzodiazepine Screen Not Detected (NotDetected); Cocaine Metabolite Screen Not Detected (NotDetected); Methadone Not Detected (NotDetected); Methamphetamine Detected (NotDetected); Opiate Screen Not Detected (NotDetected); Oxycodone Screen Not Detected (NotDetected); Phencyclidine (PCP) Not Detected (NotDetected); THC/Cannabinoid Screen Detected (NotDetected); Tricyclic Screen Not Detected (NotDetected)
[2024-01-31 12:36] LABS: Bacteria/HPF None Seen HPF (None Seen); Bilirubin Negative (Negative); Blood, Urine Trace (Negative); CAUTI Indications for Culture Pelvic or flank pain; Glucose, Urine (Dipstick) Normal (Negative); Ketone, Urine Negative (Negative); Leukocyte Negative Leu/uL (Negative); Nitrite Negative (Negative); Protein, Urine (Dipstick) 50 mg/dL (Neg-Trace); RBC/HPF None Seen HPF (0-3); Specific Gravity, Urine 1.029 (1.002-1.036); Squamous Epithelial None Seen HPF (0-3); WBC/HPF None Seen HPF (0-3); pH, Urine 5.5 (5.0-9.0)
[2024-01-31 12:39] LABS: Clarity Turbid (Clear)
[2024-01-31 12:41] LABS: Urine Culture Reflex No No
[2024-01-31 12:44] LABS: Band 4 % (5-11); Eosinophils 4 % (0-10); Large Platelets 3.9 % (0-5); Lymphocytes 10 % (21-51); Monocytes 35 % (0-10); Neutrophil 47 % (42-75); Platelet Adequacy Comment Platelets Normal; Polychromasia SLIGHT = 2-3 cells HPF (0-2); Smudge Cells 5.9 %
[2024-01-31 12:50] LABS: ALT (SGPT) 42 U/L (8-55); AST (SGOT) 64 U/L (5-34); Albumin 4.6 g/dL (3.5-5.0); Alkaline Phosphatase 148 U/L (40-110); Anion Gap 17 mmol/L (10-20); BUN (Urea Nitrogen) 17 mg/dL (8.9-20.6); Calc. Creatinine Clearance 0 mL/min (70-130); Carbon Dioxide 25 mmol/L (22-29); Chloride 103 mmol/L (98-107); Estimated GFR 107; Globulin 2.5 g/dL (2.4-3.5); Glucose 93 mg/dL (70-105); Lipase 22 U/L (8-78); Potassium 3.5 mmol/L (3.5-5.1); Protein, Total 7.1 g/dL (6.0-8.3); Sodium 141 mmol/L (136-145)
== END 2024-01-31 14:28 | disposition home or self-care (01) ==
LOC: ERS 09:52
DX: L02.511 Cutaneous abscess of right hand (principal); J06.9 Acute upper respiratory infection, unspecified; F15.10 Other stimulant abuse, uncomplicated; R74.01 Elevation of levels of liver transaminase levels; R82.998 Other abnormal findings in urine; F17.210 Nicotine dependence, cigarettes, uncomplicated
CPT/HCPCS: 10060; 71046; 80053; 80306; 81001; 83690; 85025; 87070; 87077; 87186; 87205; 93005

== ENCOUNTER 2024-02-10 09:13 | Day surgery (SDC) | payer OTHER ==
[2024-02-10] MEDS: ADMIXTURE FEE IVPB SCH (10:18)
[2024-02-10] MEDS: SODIUM CHLORIDE IVPB SCH (10:18)
[2024-02-10] MEDS: DIPHENHYDRAMINE IVPB SCH (10:18)
[2024-02-10] MEDS: SODIUM CHLORIDE 0.9% IVPB SCH (11:05)
[2024-02-10] MEDS: RITUXIMAB ABBS IVPB SCH (11:05)
[2024-02-10 15:38] VITALS: BP 143/93; TEMP 98.4
== END 2024-02-10 15:09 | disposition home or self-care (01) ==
LOC: ONC/OP 09:13
PROVIDERS: ATTEND Internal Medicine
DX: C83.78 Burkitt lymphoma, lymph nodes of multiple sites (principal); D70.9 Neutropenia, unspecified; Z88.0 Allergy status to penicillin
CPT/HCPCS: 96367; 96413; 96415; J1200; J1642; J3490; J7030; Q5115

== ENCOUNTER 2024-02-11 03:59 | Emergency (ER) | payer OTHER ==
[2024-02-11] MEDS ORDERED: diphenhydrAMINE 25 MG CAP ONE (05:03)
== END 2024-02-11 05:16 | disposition home or self-care (01) ==
LOC: ERS 03:59
DX: J02.9 Acute pharyngitis, unspecified (principal); T18.8XXA Foreign body in other parts of alimentary tract, initial encounter; F17.210 Nicotine dependence, cigarettes, uncomplicated
CPT/HCPCS: 99283

== ENCOUNTER 2024-02-11 09:11 | Inpatient (IN) | payer OTHER ==
[2024-02-11] MEDS ORDERED: Dexamethasone 20 MG in Sodium Chloride 0.9% 50 ML IVPB SCH (10:15)
[2024-02-11] MEDS ORDERED: predniSONE 50 MG TAB PO SCH (10:30)
[2024-02-11] MEDS ORDERED: Ondansetron PF 4 MG/2 ML Vial IVP PRN (11:37)
[2024-02-11 12:26] VITALS: BMI 26.2
[2024-02-11] MEDS: Acetaminophen 325 MG TAB PO SCH (13:55)
[2024-02-11] MEDS: Dexamethasone Sod Phosphate 20 MG in Sodium Chloride 0.9% 50 ML IVPB SCH (13:56)
[2024-02-11] MEDS: Famotidine/PF 20 MG in Sodium Chloride 0.9% 50 ML IVPB SCH (13:57)
[2024-02-11] MEDS: SODIUM CHLORIDE 0.9% IVPB SCH ×2 (14:59→16:38)
[2024-02-11] MEDS: ETOPOSIDE IVPB SCH (14:59)
[2024-02-11] MEDS: VINCRISTINE SULFATE IVPB SCH (16:38)
[2024-02-11] MEDS: DOXORUBICIN IVPB SCH (16:38)
[2024-02-11] MEDS: Senokot S 8.6-50 MG TAB PO PRN (21:00)
[2024-02-11] MEDS: GUAIFENESIN SF SOLN 200 MG/10 ML UDCUP PO PRN (21:14)
[2024-02-11] MEDS: Benzonatate 100 MG CAP PO PRN (21:14)
[2024-02-11] MEDS: Apixaban 5 MG TAB PO SCH (21:14)
[2024-02-11] MEDS: Lorazepam 2 MG/ML VIAL SLOW IVP SCH (21:14)
[2024-02-12 05:22] LABS: Hematocrit 36.4 % (42.0-52.0); Hemoglobin 12.3 g/dL (14.0-18.0); Mean Corpuscular HGB CONC 33.8 g/dL (32.0-36.0); Mean Corpuscular Hemoglobin 31.6 pg (27.0-31.0); Mean Corpuscular Volume 93.6 fL (78.0-98.0); Mean Platelet Volume 10.3 fL (7.4-10.4); Platelet Count 173 10x3/uL (130-400); RBC Distribution Width 13.6 % (11.5-14.5); Red Blood Cell (RBC) Count 3.89 mill/uL (4.70-6.10)
[2024-02-12 05:55] LABS: Anion Gap 13 mmol/L (10-20); BUN (Urea Nitrogen) 12 mg/dL (8.9-20.6); Calc. Creatinine Clearance 144 mL/min (70-130); Calcium 9.4 mg/dL (7.8-10.44); Carbon Dioxide 22 mmol/L (22-29); Chloride 108 mmol/L (98-107); Estimated GFR 117; Glucose 137 mg/dL (70-105); Potassium 4.2 mmol/L (3.5-5.1); Sodium 139 mmol/L (136-145); Uric Acid 3.5 mg/dL (3.5-7.2)
[2024-02-12 06:04] LABS: Band 9 % (5-11); Hypochromia SLIGHT = 6-15 cells HPF (0-5); Lymphocytes 3 % (21-51); Monocytes 2 % (0-10); Neutrophil 83 % (42-75); Nucleated RBC (Manual Ct) 1 % (0); Platelet Adequacy Comment Platelets Normal; Polychromasia SLIGHT = 2-3 cells HPF (0-2); Reactive Lymphocytes 3 % (0-10)
[2024-02-12] MEDS: Sulfameth/Trimethoprim DS 800-160mg TAB PO SCH (08:26)
[2024-02-12] MEDS: predniSONE 50 MG TAB PO SCH (08:26)
[2024-02-12] MEDS ORDERED: Enoxaparin 40 MG (0.4 mL) SYRINGE SC SCH (09:00)
[2024-02-12 13:28] LABS: Amphetamine Detected (NotDetected); Barbiturates Screen Not Detected (NotDetected); Benzodiazepine Screen Detected (NotDetected); Cocaine Metabolite Screen Not Detected (NotDetected); Methadone Not Detected (NotDetected); Methamphetamine Detected (NotDetected); Opiate Screen Not Detected (NotDetected); Oxycodone Screen Not Detected (NotDetected); Phencyclidine (PCP) Not Detected (NotDetected); THC/Cannabinoid Screen Detected (NotDetected); Tricyclic Screen Not Detected (NotDetected)
[2024-02-12] MEDS: Activase 2 MG VIAL CATH SCH ×2 (13:42→18:12)
[2024-02-12] MEDS: Sterile Water 10 ML VIAL IVP SCH ×2 (13:42→18:12)
[2024-02-13 09:44] LABS: Anion Gap 12 mmol/L (10-20); BUN (Urea Nitrogen) 16 mg/dL (8.9-20.6); Calc. Creatinine Clearance 137 mL/min (70-130); Calcium 9.2 mg/dL (7.8-10.44); Carbon Dioxide 24 mmol/L (22-29); Chloride 110 mmol/L (98-107); Estimated GFR 115; Glucose 98 mg/dL (70-105); Potassium 3.3 mmol/L (3.5-5.1); Sodium 143 mmol/L (136-145)
[2024-02-13 11:09] LABS: Hematocrit 34.2 % (42.0-52.0); Hemoglobin 11.6 g/dL (14.0-18.0); Mean Corpuscular HGB CONC 33.9 g/dL (32.0-36.0); Mean Corpuscular Hemoglobin 31.1 pg (27.0-31.0); Mean Corpuscular Volume 91.7 fL (78.0-98.0); Mean Platelet Volume 10.7 fL (7.4-10.4); Platelet Count 160 10x3/uL (130-400); Red Blood Cell (RBC) Count 3.73 mill/uL (4.70-6.10)
[2024-02-13 11:14] LABS: Lymphocytes 5 % (21-51); Monocytes 8 % (0-10); Neutrophil 87 % (42-75); Platelet Adequacy Comment Platelets Normal; RBC Morphology Within Normal Limits
[2024-02-13] MEDS ORDERED: Electrolyte Replacement Protocol 1 EACH FS SCH (12:45)
[2024-02-13] MEDS: Potassium Chloride 20 MEQ TAB PO SCH (13:14)
[2024-02-13 19:40] LABS: Potassium 3.7 mmol/L (3.5-5.1)
[2024-02-14 10:26] LABS: Hematocrit 33.5 % (42.0-52.0); Hemoglobin 11.1 g/dL (14.0-18.0); Mean Corpuscular HGB CONC 33.1 g/dL (32.0-36.0); Mean Corpuscular Hemoglobin 31.6 pg (27.0-31.0); Mean Corpuscular Volume 95.4 fL (78.0-98.0); Mean Platelet Volume 10.1 fL (7.4-10.4); Platelet Count 142 10x3/uL (130-400); RBC Distribution Width 14.2 % (11.5-14.5); Red Blood Cell (RBC) Count 3.51 mill/uL (4.70-6.10)
[2024-02-14 11:02] LABS: Anion Gap 11 mmol/L (10-20); BUN (Urea Nitrogen) 17 mg/dL (8.9-20.6); Calc. Creatinine Clearance 144 mL/min (70-130); Carbon Dioxide 26 mmol/L (22-29); Chloride 109 mmol/L (98-107); Estimated GFR 117; Glucose 89 mg/dL (70-105); Magnesium 1.9 mg/dL (1.6-2.6); Potassium 3.7 mmol/L (3.5-5.1); Sodium 142 mmol/L (136-145)
[2024-02-14 11:03] LABS: Anisocytosis SLIGHT = 6-15 cells HPF (0-5); Band 4 % (5-11); Burr Cells SLIGHT = 2-5 cells HPF (0-1); Lymphocytes 10 % (21-51); Monocytes 9 % (0-10); Neutrophil 77 % (42-75); Platelet Adequacy Comment Platelets Normal
[2024-02-15] MEDS ORDERED: CYCLOPHOSPHAMIDE IVPB SCH (00:01)
[2024-02-15] MEDS ORDERED: SODIUM CHLORIDE 0.9% IVPB SCH (00:01)
[2024-02-15] MEDS ORDERED: PALONOSETRON HCL 0.05 MG/ML 5 ML VIAL IVP SCH (00:01)
[2024-02-15 06:02] LABS: Hematocrit 34.4 % (42.0-52.0); Hemoglobin 11.8 g/dL (14.0-18.0); Mean Corpuscular HGB CONC 34.3 g/dL (32.0-36.0); Mean Corpuscular Hemoglobin 31.4 pg (27.0-31.0); Mean Corpuscular Volume 91.5 fL (78.0-98.0); Mean Platelet Volume 10.6 fL (7.4-10.4); Platelet Count 167 10x3/uL (130-400); Red Blood Cell (RBC) Count 3.76 mill/uL (4.70-6.10)
[2024-02-15 06:16] LABS: Anion Gap 13 mmol/L (10-20); BUN (Urea Nitrogen) 16 mg/dL (8.9-20.6); Calc. Creatinine Clearance 157 mL/min (70-130); Calcium 8.9 mg/dL (7.8-10.44); Carbon Dioxide 24 mmol/L (22-29); Chloride 106 mmol/L (98-107); Estimated GFR 120; Glucose 94 mg/dL (70-105); Potassium 3.7 mmol/L (3.5-5.1); Sodium 139 mmol/L (136-145)
[2024-02-15 06:54] LABS: Band 1 % (5-11); Large Platelets 2.9 % (0-5); Lymphocytes 11 % (21-51); Monocytes 6 % (0-10); Neutrophil 83 % (42-75); Platelet Adequacy Comment Platelets Normal; RBC Morphology Within Normal Limits; Smudge Cells 8.7 %
[2024-02-15] MEDS ORDERED: Magnesium Oxide 400 MG TAB PO SCH (09:00)
[2024-02-15] MEDS: Magnesium 2 GM/50 ML(in water) 2 GM in Premix 1 BAG IVPB SCH (09:27)
[2024-02-16] MEDS ORDERED: PEGFILGRASTIM-JMDB 6 MG/0.6 ML SYRINGE SQ SCH (00:01)
[2024-02-16 05:22] LABS: Hematocrit 34.9 % (42.0-52.0); Hemoglobin 11.9 g/dL (14.0-18.0); Mean Corpuscular HGB CONC 34.1 g/dL (32.0-36.0); Mean Corpuscular Volume 90.9 fL (78.0-98.0); Mean Platelet Volume 10.6 fL (7.4-10.4); Platelet Count 178 10x3/uL (130-400); RBC Distribution Width 13.9 % (11.5-14.5); Red Blood Cell (RBC) Count 3.84 mill/uL (4.70-6.10)
[2024-02-16 05:29] LABS: Anion Gap 12 mmol/L (10-20); BUN (Urea Nitrogen) 17 mg/dL (8.9-20.6); Calc. Creatinine Clearance 142 mL/min (70-130); Calcium 9.3 mg/dL (7.8-10.44); Carbon Dioxide 28 mmol/L (22-29); Chloride 104 mmol/L (98-107); Estimated GFR 117; Glucose 83 mg/dL (70-105); Potassium 4.1 mmol/L (3.5-5.1); Sodium 140 mmol/L (136-145)
[2024-02-16 05:56] LABS: Band 1 % (5-11); Lymphocytes 14 % (21-51); Monocytes 2 % (0-10); Neutrophil 83 % (42-75); Ovalocytes SLIGHT = 2-5 cells HPF (0-1); Platelet Adequacy Comment Platelets Normal
[2024-02-16] MEDS: Magnesium Oxide 400 MG TAB PO SCH (08:48)
[2024-02-16] MEDS: PALONOSETRON HCL 0.05 MG/ML 5 ML VIAL IVP SCH (11:13)
[2024-02-16] MEDS: CYCLOPHOSPHAMIDE IVPB SCH (11:14)
[2024-02-16] MEDS: SODIUM CHLORIDE 0.9% IVPB SCH (11:14)
[2024-02-17 08:55] VITALS: BP 112/68; TEMP 98.1
[2024-02-17] MEDS ORDERED: Electrolyte Replacement Protocol FS PRN (10:45)
[2024-02-17] MEDS ORDERED: PEGFILGRASTIM-JMDB 6 MG/0.6 ML SYRINGE SQ SCH (12:15)
[2024-02-17] MEDS: PEGFILGRASTIM-JMDB 6 MG/0.6 ML SYRINGE ONE (13:36)
== END 2024-02-17 16:05 | disposition home or self-care (01) | DRG 847 ==
LOC: MSONC 09:11 → OBSVTOIN 11:37
PROVIDERS: ADMIT Internal Medicine; ATTEND Hospitalist
DX: Z51.11 Encounter for antineoplastic chemotherapy (principal); C83.70 Burkitt lymphoma, unspecified site; Z59.00 Homelessness unspecified; C85.10 Unspecified B-cell lymphoma, unspecified site; C83.78 Burkitt lymphoma, lymph nodes of multiple sites; D64.9 Anemia, unspecified; F19.10 Other psychoactive substance abuse, uncomplicated; F12.90 Cannabis use, unspecified, uncomplicated; I10 Essential (primary) hypertension; Z88.0 Allergy status to penicillin; Z98.890 Other specified postprocedural states; D70.9 Neutropenia, unspecified; J02.9 Acute pharyngitis, unspecified; T18.8XXA Foreign body in other parts of alimentary tract, initial encounter; F17.210 Nicotine dependence, cigarettes, uncomplicated
CPT/HCPCS: 36415; 71260; 74177; 80048; 80053; 80306; 82248; 83615; 83735; 84100; 84550; 85025; 96367; 96413; 96415; 99283; J1100; J1200; J1642; J2060; J2469; J2506; J2997; J3490; J7030; J7512; J9000; J9070; J9181; J9370; Q5115; S0028

== ENCOUNTER 2024-05-01 10:20 | Emergency (ER) | payer OTHER ==
[2024-05-01] MEDS ORDERED: Ketorolac Tromethamine 30 MG (1 mL) VIAL ONE (10:59)
[2024-05-01 11:53] LABS: Hematocrit 12.9 % (42.0-52.0); Hemoglobin 4.6 g/dL (14.0-18.0); Mean Corpuscular HGB CONC 35.7 g/dL (32.0-36.0); Mean Corpuscular Hemoglobin 28.2 pg (27.0-31.0); Mean Corpuscular Volume 79.1 fL (78.0-98.0); Mean Platelet Volume 11.2 fL (7.4-10.4); Platelet Count 20 10x3/uL (130-400); RBC Distribution Width 12.6 % (11.5-14.5); Red Blood Cell (RBC) Count 1.63 mill/uL (4.70-6.10)
[2024-05-01 12:06] LABS: ALT (SGPT) 18 U/L (8-55); AST (SGOT) 20 U/L (5-34); Albumin 2.9 g/dL (3.5-5.0); Alkaline Phosphatase 81 U/L (40-110); Anion Gap 19 mmol/L (10-20); BUN (Urea Nitrogen) 18 mg/dL (8.9-20.6); Bilirubin, Total 1.2 mg/dL (0.2-1.2); Calc. Creatinine Clearance 0 mL/min (70-130); Calcium 9.5 mg/dL (7.8-10.44); Carbon Dioxide 21 mmol/L (22-29); Chloride 95 mmol/L (98-107); Estimated GFR 115; Globulin 2.6 g/dL (2.4-3.5); Glucose 88 mg/dL (70-105); Potassium 3.5 mmol/L (3.5-5.1); Protein, Total 5.5 g/dL (6.0-8.3); Sodium 131 mmol/L (136-145)
[2024-05-01 12:07] LABS: SARS-CoV-2 E Target Negative; SARS-CoV-2 N2 Target Negative; SARS-CoV-2 NAA Rapid Test Not Detected (NotDetected); SARS-CoV-2 RdRP gene Negative
[2024-05-01 12:08] LABS: Acetaminophen Less than 10 mcg/mL (Less than 10); Alcohol Less than 10.0 mg/dL (Less than 10); Salicylate Less than 8.0 mg/dL (Less than 8.0)
[2024-05-01] MEDS ORDERED: Ondansetron PF 4 MG/2 ML Vial ONE (12:24)
[2024-05-01 12:46] LABS: Band 2 % (5-11); Eosinophils 2 % (0-10); Hypochromia SLIGHT = 6-15 cells HPF (0-5); Large Platelets 1.8 % (0-5); Lymphocytes 64 % (21-51); Monocytes 32 % (0-10); Nucleated RBC (Manual Ct) 2 % (0); Ovalocytes SLIGHT = 2-5 cells HPF (0-1); Platelet Adequacy Comment Significant Decrease; Polychromasia SLIGHT = 2-3 cells HPF (0-2); Promyelocytes 1 % (0-0)
[2024-05-01 13:15] LABS: Hematocrit 23.2 % (42.0-52.0); Hemoglobin 8.3 g/dL (14.0-18.0); Mean Corpuscular HGB CONC 35.8 g/dL (32.0-36.0); Mean Corpuscular Hemoglobin 28.3 pg (27.0-31.0); Mean Corpuscular Volume 79.2 fL (78.0-98.0); Mean Platelet Volume 10.7 fL (7.4-10.4); Platelet Count 16 10x3/uL (130-400); RBC Distribution Width 12.7 % (11.5-14.5); Red Blood Cell (RBC) Count 2.93 mill/uL (4.70-6.10)
[2024-05-01] MEDS ORDERED: Morphine 2 MG/ML VIAL ONE (13:29)
[2024-05-01 14:24] LABS: Band 2 % (5-11); Eosinophils 3 % (0-10); Giant Platelets 0.8 % (0-5); Large Platelets 2.3 % (0-5); Lymphocytes 57 % (21-51); Monocytes 30 % (0-10); Neutrophil 5 % (42-75); Nucleated RBC (Manual Ct) 1 % (0); Platelet Adequacy Comment Significant Decrease; RBC Morphology Within Normal Limits; Reactive Lymphocytes 3 % (0-10)
[2024-05-01 14:46] LABS: Critical Call Chem-Lactate NUR.LBY; Lactic Acid 6.05 mmol/L (0.5-2.2)
[2024-05-01 14:58] LABS: Bacteria/HPF None Seen HPF (None Seen); Bilirubin Negative (Negative); Blood, Urine 1+ (Negative); CAUTI Indications for Culture Immunosuppressed; Clarity Clear (Clear); Glucose, Urine (Dipstick) Normal (Negative); Ketone, Urine Trace mg/dL (Negative); Leukocyte Negative Leu/uL (Negative); Nitrite Negative (Negative); Protein, Urine (Dipstick) 70 mg/dL (Neg-Trace); RBC/HPF 0-3 HPF (0-3); Specific Gravity, Urine 1.025 (1.002-1.036); Squamous Epithelial 0-3 HPF (0-3); WBC/HPF 0-3 HPF (0-3)
[2024-05-01 14:59] LABS: Urine Culture Reflex Yes Yes
[2024-05-01 15:05] LABS: Amphetamine Detected (NotDetected); Barbiturates Screen Not Detected (NotDetected); Benzodiazepine Screen Not Detected (NotDetected); Cocaine Metabolite Screen Not Detected (NotDetected); Methadone Not Detected (NotDetected); Methamphetamine Detected (NotDetected); Opiate Screen Not Detected (NotDetected); Oxycodone Screen Not Detected (NotDetected); Phencyclidine (PCP) Not Detected (NotDetected); THC/Cannabinoid Screen Detected (NotDetected); Tricyclic Screen Not Detected (NotDetected)
[2024-05-01] MEDS ORDERED: Morphine 4 MG/ML VIAL ONE (20:24)
[2024-05-01] MEDS ORDERED: Sodium Chloride 0.9% 100 ML ONE (20:32)
[2024-05-01] MEDS ORDERED: Cefepime 2 GM VIAL ONE (20:32)
[2024-05-01] MEDS ORDERED: Vancomycin 1 GM/200 ML (FROZEN) BAG ONE (22:39)
[2024-05-01 22:55] LABS: ALT (SGPT) 20 U/L (8-55); AST (SGOT) 23 U/L (5-34); Albumin 2.5 g/dL (3.5-5.0); Alkaline Phosphatase 70 U/L (40-110); Anion Gap 19 mmol/L (10-20); BUN (Urea Nitrogen) 13 mg/dL (8.9-20.6); Bilirubin, Total 1.1 mg/dL (0.2-1.2); Calc. Creatinine Clearance 0 mL/min (70-130); Calcium 8.9 mg/dL (7.8-10.44); Carbon Dioxide 20 mmol/L (22-29); Chloride 99 mmol/L (98-107); Estimated GFR 115; Globulin 2.5 g/dL (2.4-3.5); Glucose 82 mg/dL (70-105); Hematocrit 21.5 % (42.0-52.0); Hemoglobin 7.4 g/dL (14.0-18.0); Mean Corpuscular HGB CONC 34.4 g/dL (32.0-36.0); Mean Corpuscular Hemoglobin 28.2 pg (27.0-31.0); Mean Corpuscular Volume 82.1 fL (78.0-98.0); Mean Platelet Volume 12.1 fL (7.4-10.4); Platelet Count 13 10x3/uL (130-400); Potassium 4.1 mmol/L (3.5-5.1); RBC Distribution Width 12.9 % (11.5-14.5); Red Blood Cell (RBC) Count 2.62 mill/uL (4.70-6.10); Sodium 134 mmol/L (136-145)
[2024-05-01 23:22] LABS: Band 3 % (5-11); Blast 2 % (0-0); Lymphocytes 61 % (21-51); Metamyelocyte 3 % (0-0); Microcytosis SLIGHT = 6-15 cells HPF (0-5); Monocytes 23 % (0-10); Neutrophil 8 % (42-75); Platelet Adequacy Comment Significant Decrease; Polychromasia SLIGHT = 2-3 cells HPF (0-2); Promyelocytes 1 % (0-0)
[2024-05-02 02:45] LABS: Lactic Acid 7.81 mmol/L (0.5-2.2)
[2024-05-02] MEDS ORDERED: HYDROcodone/Acetaminophen 5/325 mg Tablet ONE (03:56)
== END 2024-05-02 04:48 | disposition short-term general hospital (02) ==
LOC: ERS 10:20
DX: D72.819 Decreased white blood cell count, unspecified (principal); C83.7 Burkitt lymphoma; F19.10 Other psychoactive substance abuse, uncomplicated; R00.0 Tachycardia, unspecified; F17.210 Nicotine dependence, cigarettes, uncomplicated
CPT/HCPCS: 36415; 70490; 71045; 80306; 80307; 81001; 83605; 83615; 84550; 85025; 87040; 87077; 87086; 87149; 87186; 93005; 94760; 96361; 96374; 96375; 96376; J0692; J1885; J2272; J2405; J3370-JW; U0002